=== PATIENT | female | born 1965 | race Caucasian/White ===

== ENCOUNTER → 2016-04-14 | Outpatient (CLI) | payer OTHER ==
--- NOTE | 2016-04-14 12:44 | XR ---
EXAMINATION TYPE: XR lumbar spine 2 or 3V DATE OF EXAM: 04/14/2016 12:40 PM CLINICAL HISTORY: pain TECHNIQUE: Three views of the lumbar spine are submitted. COMPARISON: None. FINDINGS: There are 5 lumbar type vertebral bodies identified. The lumbar spine shows satisfactory alignment w ithout evidence of acute fracture or dislocation. Vertebral body heights are within normal limits. Severe degenerative change at L5-S1. Mild scattered spondylosis. Moderate lumbar facet joint arthropa thy. Suspect bilateral foraminal encroachment at L5-S1. The overlying soft tissue appears unremarkab le. IMPRESSION: No acute fracture or dislocation is seen in the lumbar spine. Degenerative changes as discussed. ICD 10 NO FRACTURE, INITIAL EVALUATION
== END | disposition home or self-care (01) ==
LOC: RADXRMAIN 12:24
PROVIDERS: ATTEND Physician Assistant
DX: M47.816 Spondylosis without myelopathy or radiculopathy, lumbar region (principal)
CPT/HCPCS: 72100

== ENCOUNTER → 2016-04-27 | Outpatient (CLI) | payer OTHER ==
--- NOTE | 2016-04-27 09:37 | MR ---
EXAMINATION TYPE: MR lumbar spine wo con DATE OF EXAM: 04/27/2016 9:16 AM COMPARISON: Plain film April 2016 HISTORY: Intervertebral disc degeneration lsp, pain x 2 years. TECHNIQUE: Multiplanar, multisequence images of the lumbar spine were acquired. L1-L2: Posterior broad-based disc bulge causes mild anterior mass effect on the thecal sac. No signif icant central stenosis. There is mild facet arthropathy. L2-L3: Broad-based posterior disc bulge causes anterior mass effect on the thecal sac, only mild cent ral stenosis. No significant foraminal encroachment. Mild facet arthropathy is noted. L3-L4: Broad-based posterior disc bulge causes anterior mass effect on the thecal sac, there is mild central stenosis, facet arthropathy with hypertrophy of the ligamentum flavum causes posterior latera l mass effect on the thecal sac, encroachment on the lateral recesses. L4-L5: Circumferential posterior disc bulge causes minimal anterior mass effect on the thecal sac. Th ere is facet arthropathy with hypertrophy of the ligamentum flavum causing posterior lateral mass eff ect on the thecal sac. No significant encroachment on the lateral recesses, no significant central st enosis L5-S1: Facet arthropathy changes present. Circumferential extension of endplate disc complex results in foraminal encroachment bilaterally, mild anterior mass effect on the left S1 nerve root is present due to small left posterior paracentral disc herniation. Lumbar segments are intact. No paraspinal masses are identified. Conus medullaris has a normal appe arance. Lumbar vertebral bodies show preserved height and alignment. Minimal retrolisthesis grade 1 L 5-S1. Endplate discogenic marrow signal changes, multilevel spondylosis is present. Loss of disc heig ht and signal of the intervertebral levels. IMPRESSION: Degenerative disc disease, facet arthropathy, foraminal encroachment as described.
== END | disposition home or self-care (01) ==
LOC: RADMRIMAIN 08:37
PROVIDERS: ATTEND Family Medicine
DX: M51.36 Other intervertebral disc degeneration, lumbar region (principal); M46.96 Unspecified inflammatory spondylopathy, lumbar region
CPT/HCPCS: 72148

== ENCOUNTER → 2016-05-09 | Outpatient (CLI) | payer OTHER ==
[2016-05-09 12:50] LABS: Blood Urea Nitrogen 17 mg/dL (7-17); Non-African American GFR(MDRD) >60 (>60 ml/min/1.73 sqM)
== END | disposition home or self-care (01) ==
LOC: LABWHC1 11:46
PROVIDERS: ATTEND Nurse Practitioner
DX: M51.36 Other intervertebral disc degeneration, lumbar region (principal); M54.16 Radiculopathy, lumbar region; Z96.642 Presence of left artificial hip joint
CPT/HCPCS: 36415; 82565; 84520

== ENCOUNTER → 2016-05-16 | Outpatient (CLI) | payer OTHER ==
--- NOTE | 2016-05-16 08:47 | CT ---
EXAMINATION TYPE: CT hip LT wo con DATE OF EXAM: 05/16/2016 7:22 AM COMPARISON: CT abdomen and pelvis February 28, 2015. HISTORY: Artificial hip joint. S/P Left IRON in 2013. Left groin pain. CT DLP: 428.50 mGycm Automated exposure control for dose reduction was used. FINDINGS: Metallic hardware from left hip arthroplasty is redemonstrated causing adjacent streak artifact limit ing evaluation at this level in the pelvis. Position of hardware is not significantly changed from pr ior CT. There is stable well-defined lucent lesion along the acetabular fixating screw anteriorly, fa vor subchondral cyst . No new lucent areas are identified and acetabular or femoral shaft component t o suggest loosening or infection. No periprosthetic fracture is evident. Muscle bulk in the left thig h is maintained. No suspicious fat or bowel containing groin hernia is seen. Some diverticula are seen in visualized portion of the sigmoid colon. There is perhaps trace free flu id in pelvis similar to the prior. No suspicious pelvic adenopathy is seen. A few scattered pelvic ph leboliths are noted. There is disc space narrowing with endplate sclerosis at lumbosacral junction. IMPRESSION: NO SIGNIFICANT FINDING IDENTIFIED ON CT TO ACCOUNT FOR PATIENT'S SYMPTOMS.
--- NOTE | 2016-05-16 11:44 | NM ---
EXAMINATION TYPE: NM bone 3 phase DATE OF EXAM: 05/16/2016 11:14 AM COMPARISON: NONE HISTORY: Chronic left hip pain Triple phase bone scintigraphy was performed following the injection of26.8 mCi Tc 99m MDP. Immediat e images and 3.5 hours post injection images acquired. FINDINGS: No evidence for abnormal accumulation of radiotracer about either hip or pelvis. IMPRESSION: No scintigraphic abnormality appreciated at this time.
== END | disposition home or self-care (01) ==
LOC: RADCTMAIN 06:55
PROVIDERS: ATTEND Orthopaedic Surgery
DX: R10.30 Lower abdominal pain, unspecified (principal); M54.16 Radiculopathy, lumbar region; M54.5 Low back pain; M51.36 Other intervertebral disc degeneration, lumbar region; Z96.642 Presence of left artificial hip joint
CPT/HCPCS: 73700; 78315; A9503

== ENCOUNTER → 2016-07-19 | Outpatient (CLI) | payer OTHER ==
[2016-07-19 14:12] VITALS: BP 147/76; PULSE 62; RESP 18; TEMP 97.6
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
== END | disposition home or self-care (01) ==
LOC: PNWHC3 12:36
PROVIDERS: ATTEND Specialist
DX: M48.06 Spinal stenosis, lumbar region (principal); M51.36 Other intervertebral disc degeneration, lumbar region; M47.816 Spondylosis without myelopathy or radiculopathy, lumbar region; M46.96 Unspecified inflammatory spondylopathy, lumbar region; G89.29 Other chronic pain; I10 Essential (primary) hypertension; M19.90 Unspecified osteoarthritis, unspecified site; Z79.899 Other long term (current) drug therapy
CPT/HCPCS: 99211

== ENCOUNTER 2016-08-17 06:20 | Day surgery (SDC) | payer OTHER ==
[2016-08-15 08:57] VITALS: BMI 34.0
[~2016-08-17 06:20] MED LIST: LACTATED RINGERS 1,000 ML IV SCH
[2016-08-17] MEDS ORDERED: LIDOCAINE 1% 20 ML VIAL (10MG/ML) FOR IV START INTRADERMA ONE (06:58)
[2016-08-17 07:01] VITALS: RESP 16; TEMP 98
[2016-08-17] MEDS ORDERED: MIDAZOLAM 2 MG/2 ML VIAL ONE (07:08)
[2016-08-17] MEDS ORDERED: IOHEXOL 180 MG/ML 1 ML ML ONE (07:08)
[2016-08-17] MEDS ORDERED: BUPIVACAINE (PF) 0.5% 30 ML VIAL ONE (07:08)
[2016-08-17] MEDS ORDERED: TRIAMCINOLONE ACETONIDE 40 MG/ML 1 ML VIAL ONE (07:08)
[2016-08-17] MEDS ORDERED: fentaNYL (PF) 50 MCG/ML 2 ML AMP ONE (07:08)
[2016-08-17] MEDS ORDERED: IV FLUID CONTINUATION 1,000 ML IV ONE (07:35)
[2016-08-17 07:52] VITALS: BP 139/77; PULSE 60
--- NOTE | 2016-08-17 08:58 | FL ---
EXAMINATION TYPE: FL guided pain mgmt statistic DATE OF EXAM: 08/17/2016 7:39 AM HISTORY: Flouroscopy time 6 seconds of fluoroscopy provided. IMPRESSION: 1. Fluoroscopy time.
--- NOTE | 2016-08-17 12:03 | P.PCN ---
Date of Procedure: 08/17/16 Procedure(s) Performed: PREOPERATIVE DIAGNOSIS: 1- Lumbar Degenerative Disc Diseases 2-Lumbar spondylosis with Facet arthropathy without myelopathy 3-left trochanteric bursitis POSTOPERATIVE DIAGNOSIS: 1-Lumber Degenerative Disc Diseases 2-Lumbar spondylosis with Facet arthropathy without myelopathy. 3-to contradict bursitis PROCEDURE 1. Lumbar epidural steroid injection under fluoroscopic guidance at the L5-S1 level. 2. Lumbar epidurogram. 3-left trochanteric bursa steroid injection under fluoroscopy guidance ANESTHESIA: Local with 1% lidocaine 3 ml and IV sedation with Versed 2 mg , and fentanyle 100 Mcg EBL: Minimal PROCEDURE INDICATION: The patient with low back pain and radiculitis symptoms unresponsive to conservative treatment. Fluoroscopy was used to optimize visualization of the needle placement and to maximize safety. PROCEDURE DESCRIPTION / TECHNIQUE: The patient was seen and identified in the preoperative area. Risks, benefits , complications including but not limited to infections ,bleeding ,allergic reaction to the medications ,nerve damage and not complete pain releife , and alternatives were discussed with the patient. The patient agreed to proceed with the procedure and signed the consent. IV was started, and vital signs were stable. Patient was taken to the OR and time out was completed. The patient was placed in the prone position on procedure table and a pillow was placed under the abdomen to reduce lumbar lordosis. The lumbosacral area was prepped and draped in the usual sterile fashion.ere closely monitored during the procedure. Conscious sedation was used during the procedure to decrease patients anxiety. Vital signs was monitered during the entire procedure. Using anterior-posterior fluoroscopy, the L5-S1 interlaminar space was identified and the skin over this site was marked and then infiltrated with 1% lidocaine subcutaneously. Subsequently, a 20-gauge Tuohy epidural needle was inserted and advanced toward the epidural space using the ``Loss of resistance technique and guided by AP and lateral fluoroscopy. The correct needle position in the epidural space was verified with the injection of 2 mL of the water soluble contrast dye Omnipaque 180 contrast and observing an excellent epidurogram with the epidural spread of the dye, after negative aspiration for blood and CSF and in the absence of paresthesias. Again after negative aspiration, a 6 ml mixture containing 60 mg of Kenalog and 2 ml of preservative free Normal Saline, and 2 ml of preservative free lidocaine 1% solution was injected and a washout of epidurogram was seen. Needle was withdrawn intact, skin was cleansed, and bandages were applied. The left trochanteric bursa prepped with chlorhexidine 3, using 22-gauge Quincke-type spinal needle advanced slowly under fluoroscopy and placed in the left trochanteric bursa area, then after negative aspiration for heme and there was no paresthesia during the injection total of 5 ML of Marcaine 0.5%, explained 20 mg of Kenalog injected after negative aspiration, patient tolerated the procedure well COMPLICATIONS: None DISPOSITION / PLANS: The patient was placed in a supine position and transferred to the recovery area in a stable condition for observation. There was no evidence of lower extremity motor or sensory deficit after the procedure. Patient was discharged from the recovery room after meeting discharge criteria. Home discharge instructions were given to the patient by the staff. The patient was reexamined prior to discharge. The patient will schedule a follow up in the clinic in 2-4 weeks.
== END 2016-08-17 08:15 | disposition home or self-care (01) ==
LOC: ORPAIN 06:20
PROVIDERS: ATTEND Specialist
DX: G89.29 Other chronic pain (principal); M51.16 Intervertebral disc disorders with radiculopathy, lumbar region; M48.06 Spinal stenosis, lumbar region; M47.26 Other spondylosis with radiculopathy, lumbar region; M46.96 Unspecified inflammatory spondylopathy, lumbar region; M70.62 Trochanteric bursitis, left hip; M46.1 Sacroiliitis, not elsewhere classified; I10 Essential (primary) hypertension; M19.90 Unspecified osteoarthritis, unspecified site; Z79.899 Other long term (current) drug therapy; Z87.891 Personal history of nicotine dependence; Z96.642 Presence of left artificial hip joint
CPT/HCPCS: 62323; 20610; 99152; J2250; J3301; Q9965; J3010

== ENCOUNTER 2016-09-08 06:22 | Day surgery (SDC) | payer OTHER ==
[2016-09-06 10:43] VITALS: BMI 33.6
[2016-09-08 07:00] VITALS: TEMP 97.8
[2016-09-08] MEDS ORDERED: LACTATED RINGERS 1,000 ML IV ONE (07:00)
[2016-09-08] MEDS ORDERED: LIDOCAINE 1% 20 ML VIAL (10MG/ML) FOR IV START INTRADERMA ONE (07:01)
[2016-09-08] MEDS ORDERED: fentaNYL (PF) 50 MCG/ML 2 ML AMP ONE (07:23)
[2016-09-08] MEDS ORDERED: MIDAZOLAM 2 MG/2 ML VIAL ONE (07:23)
[2016-09-08] MEDS ORDERED: BUPIVACAINE (PF) 0.5% 30 ML VIAL ONE (07:23)
[2016-09-08] MEDS ORDERED: IOHEXOL 180 MG/ML 1 ML ML ONE (07:23)
[2016-09-08] MEDS ORDERED: TRIAMCINOLONE ACETONIDE 40 MG/ML 1 ML VIAL ONE (07:23)
[2016-09-08] MEDS ORDERED: DEXAMETHASONE SOD PHOSPHATE 10 MG/ML 1 ML VIAL ONE (07:23)
[2016-09-08] MEDS ORDERED: LACTATED RINGERS 1,000 ML IV SCH (07:30)
[2016-09-08] MEDS ORDERED: IV FLUID CONTINUATION 1,000 ML IV ONE (07:40)
[2016-09-08 07:50] VITALS: RESP 18
--- NOTE | 2016-09-08 07:59 | P.PCN ---
Date of Procedure: 09/08/16 Preoperative Diagnosis: Postoperative Diagnosis: Procedure(s) Performed: Implants: Surgeon: Aguila Recinos Pathology: none sent Condition: stable Disposition: PACU Indications for Procedure: Operative Findings: Description of Procedure: PREOPERATIVE DIAGNOSIS: 1-Lumbar radiculitis. 2-left trochanteric bursitis POSTOPERATIVE DIAGNOSIS: same PROCEDURE 1. Lumbar epidural steroid injection under fluoroscopic guidance at the L5-S1 level. 2. Lumbar epidurogram. 3. Left greater trochanteric bursa with fluoroscopy ANESTHESIA: Local with 1% lidocaine; IV sedation with Versed/fentanyl. EBL: Minimal PROCEDURE INDICATION: The patient with low back pain and radiculitis symptoms and left trochanteric bursitis unresponsive to conservative treatment. Fluoroscopy was used to optimize visualization of the needle placement and to maximize safety. No use of blood thinners. PROCEDURE DESCRIPTION / TECHNIQUE: The patient was seen and identified in the preoperative area. Risks, benefits, complications, and alternatives were discussed with the patient, including but not limited to bleeding, infection, nerve damage, allergic reactions to medications, and incomplete pain relief. The patient agreed to proceed with the procedure and signed the consent after all questions were answered. IV was started, and vital signs were stable. Patient was taken to the OR and time out was completed to confirm patient position, procedure, laterality of pain, and allergies. The patient was placed in the prone position on procedure table and a pillow was placed under the abdomen to reduce lumbar lordosis. The lumbosacral area was prepped and draped in the usual sterile fashion. Critical pause was taken. Vital signs were closely monitored during the procedure. Conscious sedation was used during the procedure to decrease patients anxiety. Using anterior-posterior fluoroscopy, the L5-S1 interlaminar space was identified and the skin over this site was marked and then infiltrated with 1% lidocaine subcutaneously. Subsequently, a 20-gauge Tuohy epidural needle was inserted and advanced toward the epidural space using the Loss of resistance technique and guided by AP and lateral fluoroscopy. The correct needle position in the epidural space was verified with the injection of 2 mL of the water soluble contrast dye Omnipaque 300 contrast and observing an excellent epidurogram with the epidural spread of the dye, after negative aspiration for blood and CSF and in the absence of paresthesias. Again after negative aspiration, a 8 ml mixture containing 20 mg of PF Decadron and 5 ml of preservative free Normal Saline, and 2 ml of preservative free lidocaine 1% solution was injected and a washout of epidurogram was seen. Needle was withdrawn intact. After this, the left hip areas was prepped and draped in the usual sterile fashion and the left greater trochanter was identified under fluoroscopy. Block solution was prepared with 40 mg of Kenalog in 7 mL of 0.5% bupivacaine preservative-free. After localization with 1% lidocaine, a 22-gauge 3.5 inch needle was advanced toward the subtrochanteric space, and after negative aspiration, all of the block solution was injected. This was repeated on the Right??/Left?? side. Needle was withdrawn intact, skin was cleansed, and bandages were applied. COMPLICATIONS: None COMMENTS: DISPOSITION / PLANS: The patient was placed in a supine position and transferred to the recovery area in a stable condition for observation. There was no evidence of lower extremity motor or sensory deficit after the procedure. Patient was discharged from the recovery room after meeting discharge criteria. Home discharge instructions were given to the patient by the staff. The patient was reexamined prior to discharge and there were no issues. The patient will schedule a third procedure in 2-4 weeks.
--- NOTE | 2016-09-08 08:05 | FL ---
EXAMINATION TYPE: FL guided pain mgmt statistic DATE OF EXAM: 09/08/2016 HISTORY: Pain lumbar epi inj/lt trochanter inj. dr solano. 8 sec fl time. 3 pics scanned
[2016-09-08 08:07] VITALS: BP 165/75; PULSE 53
== END 2016-09-08 08:15 | disposition home or self-care (01) ==
LOC: ORPAIN 06:22
PROVIDERS: ATTEND Anesthesiology
DX: G89.29 Other chronic pain (principal); M54.16 Radiculopathy, lumbar region; E78.5 Hyperlipidemia, unspecified; I10 Essential (primary) hypertension; Z79.899 Other long term (current) drug therapy; M70.62 Trochanteric bursitis, left hip
CPT/HCPCS: 62323; 20610; 99152; J2250; J1100; J3301; Q9965; J3010

== ENCOUNTER 2016-09-29 12:11 | Day surgery (SDC) | payer OTHER ==
[2016-09-28 08:20] VITALS: BMI 33.0
[2016-09-29 12:55] VITALS: RESP 16; TEMP 98.5
[2016-09-29] MEDS ORDERED: LIDOCAINE 1% 20 ML VIAL (10MG/ML) FOR IV START SQ ONE (13:03)
[2016-09-29] MEDS ORDERED: BUPIVACAINE (PF) 0.75% 30 ML VIAL ONE (13:57)
[2016-09-29] MEDS ORDERED: MIDAZOLAM 2 MG/2 ML VIAL ONE (13:57)
[2016-09-29] MEDS ORDERED: IOHEXOL 180 MG/ML 1 ML ML ONE (13:57)
[2016-09-29] MEDS ORDERED: DEXAMETHASONE SOD PHOS (MDV) 100 MG/10 ML VIAL ONE (13:57)
[2016-09-29] MEDS ORDERED: fentaNYL (PF) 50 MCG/ML 2 ML AMP ONE (13:57)
--- NOTE | 2016-09-29 14:19 | P.PCN ---
Date of Procedure: 09/29/16 Preoperative Diagnosis: Postoperative Diagnosis: Procedure(s) Performed: PREOPERATIVE DIAGNOSIS: 1- Lumbar Degenerative Disc Diseases 2-Lumbar spondylosis with Facet arthropathy without myelopathy. 3-lumbar radiculopathy. 4-left trochanteric bursitis. POSTOPERATIVE DIAGNOSIS: Same as preop diagnosis. PROCEDURE 1. Lumbar epidural steroid injection under fluoroscopic guidance at the L5-S1 level. 2. Lumbar epidurogram. 3-left trochanteric bursa steroid injections under fluoroscopy guidance ANESTHESIA: Local with 1% lidocaine 3 ml and IV sedation with Versed 2 mg , and fentanyle 50 Mcg EBL: Minimal PROCEDURE INDICATION: The patient with low back pain and radiculitis symptoms unresponsive to conservative treatment. Fluoroscopy was used to optimize visualization of the needle placement and to maximize safety. PROCEDURE DESCRIPTION / TECHNIQUE: The patient was seen and identified in the preoperative area. Risks, benefits , complications including but not limited to infections ,bleeding ,allergic reaction to the medications ,nerve damage and not complete pain releife , and alternatives were discussed with the patient. The patient agreed to proceed with the procedure and signed the consent. IV was started, and vital signs were stable. Patient was taken to the OR and time out was completed. The patient was placed in the prone position on procedure table and a pillow was placed under the abdomen to reduce lumbar lordosis. The lumbosacral area was prepped and draped in the usual sterile fashion.ere closely monitored during the procedure. Conscious sedation was used during the procedure to decrease patients anxiety. Vital signs was monitered during the entire procedure. Using anterior-posterior fluoroscopy, the L5-S1 interlaminar space was identified and the skin over this site was marked and then infiltrated with 1% lidocaine subcutaneously. Subsequently, a 20-gauge Tuohy epidural needle was inserted and advanced toward the epidural space using the ``Loss of resistance technique and guided by AP and lateral fluoroscopy. The correct needle position in the epidural space was verified with the injection of 2 mL of the water soluble contrast dye Omnipaque 180 contrast and observing an excellent epidurogram with the epidural spread of the dye, after negative aspiration for blood and CSF and in the absence of paresthesias. Again after negative aspiration, a 6 ml mixture containing 15 mg of Dexamethasone and 2 ml of preservative free Normal Saline, and 2 ml of preservative free lidocaine 1% solution was injected and a washout of epidurogram was seen. Needle was withdrawn intact, In the left hip area prepped with chlorhexidine 3, then local infiltration of the skin and subcutaneous tissue with lidocaine 1% 2 mL, then 22-gauge spinal needle Advanced slowly under fluoroscopy and placed in the left trochanteric bursa area , needle placement confirmed under fluoroscopy then after negative aspiration Marcaine 0.75% 5 ML mixed with 5 mg of dexamethasone injected in the left trochanteric bursa after negative aspiration, she tolerated the procedure well without any complications COMPLICATIONS: None DISPOSITION / PLANS: The patient was placed in a supine position and transferred to the recovery area in a stable condition for observation. There was no evidence of lower extremity motor or sensory deficit after the procedure. Patient was discharged from the recovery room after meeting discharge criteria. Home discharge instructions were given to the patient by the staff. The patient was reexamined prior to discharge. The patient will schedule a follow up in the clinic in 2-4 weeks. Implants: Indications for Procedure: Operative Findings: Description of Procedure:
[2016-09-29] MEDS ORDERED: IV FLUID CONTINUATION 1,000 ML IV ONE (14:21)
--- NOTE | 2016-09-29 14:29 | FL ---
FLUOROSCOPY 4 seconds of fluoroscopy time were utilized during lumbar epidural injection. 2 images document the p rocedure.
[2016-09-29 14:42] VITALS: BP 139/79; PULSE 58
== END 2016-09-29 15:05 | disposition home or self-care (01) ==
LOC: ORPAIN 12:11
PROVIDERS: ATTEND Specialist
DX: M51.16 Intervertebral disc disorders with radiculopathy, lumbar region (principal); M47.816 Spondylosis without myelopathy or radiculopathy, lumbar region; M46.96 Unspecified inflammatory spondylopathy, lumbar region; M70.62 Trochanteric bursitis, left hip; I10 Essential (primary) hypertension
CPT/HCPCS: 99152; 62323; 20610; J2250; Q9965; J3010; J1100

== ENCOUNTER 2016-10-15 13:03 | Emergency (ER) | payer OTHER ==
[2016-10-15 13:07] VITALS: BP 156/73; PULSE 85; RESP 18; TEMP 97.7
[2016-10-15] MEDS ORDERED: HYDROmorphone 1 MG/ML 1 ML SYRINGE IM STA (13:27)
[2016-10-15] MEDS ORDERED: ONDANSETRON ODT 4 MG TAB PO STA (13:27)
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
--- NOTE | 2016-10-15 14:07 | XR ---
EXAMINATION TYPE: XR cervical spine limited DATE OF EXAM: 10/15/2016 COMPARISON: NONE HISTORY: 51-year-old female posterior right neck pain with right-sided radiculopathy TECHNIQUE: 4 views FINDINGS: The predental space widening or prevertebral soft tissue swelling. Uncovertebral joint and facet degenerative change mid to lower cervical spine. Normal odontoid view. Reversal of the normal cervical lordosis. There may be a slight grade 1 retrolisthesis at C5-C6. Cunningham kim, posterior disc osteophyte complex is present here and at C4-C5. There is associated moderate to advanced disc/endplate degenerative change at C5-C6. Otherwise, alignment is maintained. IMPRESSION: 1. Moderate to advanced disc/endplate degenerative change at C5-C6 with grade 1 retrolisthesis here. 2. Posterior disc osteophyte complexes at both C5-C6 and C4-C5. 3. Reversal of the normal cervical lordosis. 4. Additional scattered facet and uncovertebral joint arthropathy mid to lower cervical spine.
== END 2016-10-15 14:36 | disposition home or self-care (01) ==
LOC: EC 13:03
DX: M54.2 Cervicalgia (principal); M50.322 Other cervical disc degeneration at C5-C6 level; M25.519 Pain in unspecified shoulder; I10 Essential (primary) hypertension; Z87.891 Personal history of nicotine dependence; Z79.899 Other long term (current) drug therapy
CPT/HCPCS: 72040; 99283; 96372; J1170

== ENCOUNTER → 2016-10-31 | Outpatient (CLI) | payer OTHER | END | disposition home or self-care (01) | LOC: RADMRIMAIN 14:21 | PROVIDERS: ATTEND Family Medicine | DX: Z53.9 Procedure and treatment not carried out, unspecified reason (principal) ==

== ENCOUNTER → 2016-11-28 | Outpatient (CLI) | payer OTHER ==
[2016-11-28 14:14] VITALS: BP 166/67; PULSE 96; RESP 16; TEMP 97.9
--- NOTE | 2016-11-28 14:34 | P.PN ---
Progress Note - Text This is a 51-year-old female with history of lower back pain that responded favorably to lumbar epidural steroid injections. The patient is in today because of her recent neck pain that started with no precipitating events in October 2016. The pain is constant and the patient feels some weakness in her right hand as she states he also feels some difficulty her right hand especially with bringing the right hand up to her mouth when she eats. The pain starts in the neck area and goes to the right elbow with numbness and tingling down to the right hand. She denies any bowel or bladder dysfunction. The pain wakes the patient up at night. Weight loss. The pain has improved since the patient's visit to the ER and treatment with oral steroids. She just had an MRI done on the cervical spine however we don't have access to the results. The plain x-ray of the cervical spine showed degenerative changes and spondylolisthesis of C5 and C6 also bone spurs and facet arthropathy at multiple levels. Neuro exam of the upper extremities showed normal muscle strength bilaterally and symmetrically, absent right biceps reflex. He has no tenderness in the cervical paravertebral area bilaterally. He has normal range of motion of the cervical spine. Compression test of the cervical spine did not elicit any radicular pain. It seems that the patient has cervical radiculopathy on the right side and if her pain does not get better then she might benefit from getting cervical epidural steroid injection under fluoroscopic guidance. The patient also may benefit from getting physical therapy. His been taking Motrin and Flexeril for her pain and she is to continue using these medications.
== END | disposition home or self-care (01) ==
LOC: PNWHC3 13:50
PROVIDERS: ATTEND Anesthesiology
DX: M43.10 Spondylolisthesis, site unspecified (principal); M47.812 Spondylosis without myelopathy or radiculopathy, cervical region; M46.82 Other specified inflammatory spondylopathies, cervical region
CPT/HCPCS: 99211

== ENCOUNTER 2017-01-04 08:26 | Day surgery (SDC) | payer OTHER ==
[2017-01-03 10:03] VITALS: BMI 34.9
[2017-01-04 08:43] VITALS: RESP 16; TEMP 97.1
[2017-01-04] MEDS ORDERED: LACTATED RINGERS 1,000 ML IV ONE ×2 (08:43→09:35)
[2017-01-04] MEDS ORDERED: LIDOCAINE 1% 20 ML VIAL (10MG/ML) FOR IV START INTRADERMA ONE (08:44)
--- NOTE | 2017-01-04 09:28 | P.PCN ---
Date of Procedure: 01/04/17 Surgeon: Aguila Recinos Pathology: none sent Condition: stable Disposition: PACU Description of Procedure: PREOPERATIVE DIAGNOSIS: Cervical radiculopathy. POSTOPERATIVE DIAGNOSIS: Cervical radiculopathy. PROCEDURE 1. Cervical epidural steroid injection under fluoroscopic guidance, C7-T1 level. 2. Cervical epidurogram. ANESTHESIA: Local anesthesia with 1% lidocaine and IV sedation with versed/ fentanyl. EBL: Minimal PROCEDURE INDICATION: The patient with neck pain and radiculitis unresponsive to conservative treatment consents for procedure. DIRK #1 today; no use of blood thinners. PROCEDURE DESCRIPTION / TECHNIQUE: The patient was seen and identified in the preoperative area. Risks, benefits, complications, and alternatives were discussed with the patient (including but not limited to incomplete pain relief, bleeding, infection, nerve damage, and allergies to medications), the patient agreed to proceed with the procedure and signed the consent after all questions were answered. Patient was taken to the OR and time out was completed to verify proper patient , position, laterality of pain, and allergies. Pt was placed in the prone position. A pillow was placed under the patients chest to increase the cervical interlaminar space. The cervical area was prepped and draped in the usual sterile fashion. Critical pause was taken. Vital signs were closely monitored during the procedure. Conscious sedation was used during the procedure to decrease patients anxiety. Using anterior-posterior fluoroscopy, the C7-T1 interlaminar space was identified and the skin over this site was marked and then infiltrated with 1% lidocaine subcutaneously in a paramedian fashion. Subsequently, a 20-gauge 3-1/2 -inch Tuohy epidural needle was inserted and advanced toward the epidural space by means of the loss of resistance technique and guided by AP and lateral fluoroscopy. After negative aspiration for blood or CSF and in the absence of paresthesias, the correct needle position in the epidural space was verified with the injection of 1 mL of the water soluble contrast dye Omnipaque-180 and observing an excellent epidurogram with the epidural spread of the dye, after negative aspiration for blood and CSF and in the absence of paresthesias. Again after negative aspiration, a 4 ml mixture containing 20 mg of Decadron and 2 ml of preservative free Normal Saline solution was injected and a washout of epidurogram was seen. Needle was withdrawn intact, skin was cleansed, and bandages were applied. COMPLICATIONS: None COMMENTS: DISPOSITION / PLANS: The patient was placed in a supine position and transferred to the recovery area in a stable condition for observation. There was no evidence of upper extremity motor or sensory deficit after the procedure. Patient was discharged from the recovery room after meeting discharge criteria. Home discharge instructions were given to the patient by the staff. The patient was reexamined prior to discharge and there were no issues. The patient will schedule a repeat DIRK in 4-6 weeks.
--- NOTE | 2017-01-04 09:52 | FL ---
EXAMINATION TYPE: FL guided pain mgmt statistic DATE OF EXAM: 01/04/2017 CLINICAL HISTORY: Neck pain. TECHNIQUE: Fluoroscopy. COMPARISON: None. FINDINGS: Fluoroscopic guidance was provided during pain relief procedure performed by Dr. Recinos . A total of 23 seconds of fluoroscopic time was utilized during the procedure and 3 spot images are ac quired. Images acquired shows needle localization in the lower cervical spine. IMPRESSION: As Above.
[2017-01-04 09:55] VITALS: BP 119/71; PULSE 57
== END 2017-01-04 10:12 | disposition home or self-care (01) ==
LOC: ORPAIN 08:26
PROVIDERS: ATTEND Anesthesiology
DX: M54.12 Radiculopathy, cervical region (principal); Z79.1 Long term (current) use of non-steroidal anti-inflammatories (NSAID); Z79.899 Other long term (current) drug therapy; I10 Essential (primary) hypertension; E78.5 Hyperlipidemia, unspecified
CPT/HCPCS: 99152; 62321; J2250; J1100; Q9965; J3010

== ENCOUNTER → 2017-01-23 | Outpatient (CLI) | payer OTHER ==
--- NOTE | 2017-01-24 08:03 | MM ---
Reason for exam: screening (asymptomatic). Last mammogram was performed 1 year ago. History: Patient is postmenopausal. Took hormonal contraceptives for 3 years beginning at age 17. Physical Findings: A clinical breast exam by your physician is recommended on an annual basis and results should be correlated with mammographic findings. MG Screening Mammo w CAD Bilateral CC and MLO view(s) were taken. Prior study comparison: January 22, 2016, bilateral MG screening mammo w CAD. January 20, 2015, bilateral MG screening mammo w CAD. There are scattered fibroglandular densities. No significant changes when compared with prior studies. ASSESSMENT: Negative, BI-RAD 1 RECOMMENDATION: Routine screening mammogram of both breasts in 1 year.
== END ==
LOC: RADMAMWWP 06:56
PROVIDERS: ATTEND Family Medicine
DX: Z12.31 Encounter for screening mammogram for malignant neoplasm of breast (principal)

== ENCOUNTER 2017-02-08 06:23 | Inpatient (IN) | payer OTHER ==
[2017-01-26 15:38] VITALS: BMI 34.9
[~2017-02-08 06:23] MED LIST changes: +BACITRACIN 50,000 UNIT, POLYMYXIN B 500,000 UNIT in SODIUM CHLORIDE 0.9% IRRIGATIO 1,00... IRRIGATION ONE; -LACTATED RINGERS 1,000 ML IV SCH; +LIDOCAINE 1% 20 ML VIAL (10MG/ML) FOR IV START INTRADERMA PRN; +ONDANSETRON 4 MG/2 ML VIAL IVP ONE; +SCOPOLAMINE 1.5MG/72HR PATCH TRANSDERM ONE; +ceFAZolin 2 GM in SODIUM CHLORIDE 0.9% 100 ML IVPB ONE
[2017-02-08] MEDS: LACTATED RINGERS 1,000 ML IV SCH (07:06)
[2017-02-08] MEDS ORDERED: NEOSTIGMINE 1 MG/ML 10 ML VIAL ONE (07:57)
[2017-02-08] MEDS ORDERED: LIDOCAINE 1% INJ 10MG/ML (20 ML MDV) SQ ONE (07:57)
[2017-02-08] MEDS ORDERED: THROMBIN (BOVINE) 5,000 UNIT VIAL TOPICAL ONE (07:57)
[2017-02-08] MEDS ORDERED: MIDAZOLAM 2 MG/2 ML VIAL ONE (07:57)
[2017-02-08] MEDS ORDERED: DEXAMETHASONE SOD PHOS (MDV) 100 MG/10 ML VIAL ONE (07:57)
[2017-02-08] MEDS ORDERED: HYDROmorphone (PF) 1 MG/ML ONE (07:57)
[2017-02-08] MEDS ORDERED: GELATIN SPONGE,ABSORB (LARGE) 1 EACH SPONGE TOPICAL ONE (07:57)
[2017-02-08] MEDS ORDERED: PHENYLEPHRINE-0.9% NACL SYG 1 MG/10 ML SYRINGE ONE (07:57)
[2017-02-08] MEDS ORDERED: GLYCOPYRROLATE 0.2 MG/ML 2 ML VIAL ONE (07:57)
[2017-02-08] MEDS ORDERED: ROCURONIUM BROMIDE 10 MG/ML 10 ML VIAL IV ONE (07:57)
[2017-02-08] MEDS ORDERED: LIDOCAINE 1% INJ 10MG/ML (20 ML MDV) ONE (07:57)
[2017-02-08] MEDS ORDERED: PROPOFOL 10 MG/ML 20 ML VIAL IV ONE (07:57)
[2017-02-08] MEDS ORDERED: fentaNYL (PF) 50 MCG/ML 2 ML AMP ONE (07:57)
[2017-02-08] MEDS ORDERED: SUCCINYLCHOLINE CHLORIDE 100 MG/5 ML SYR IV ONE (07:57)
--- NOTE | 2017-02-08 09:04 | XR ---
EXAMINATION TYPE: XR cervical spine 1V DATE OF EXAM: 02/08/2017 COMPARISON: 10/15/2016 HISTORY: Needle placement TECHNIQUE: Single crosstable lateral view of the cervical spine was obtained. FINDINGS: Single intraoperative crosstable lateral image of the cervical spine is demonstrates needle placement at the C4-C5 intervertebral disc space. Multilevel degenerative disc disease is redemonstr ated. Alignment is appropriate. Prevertebral soft tissues are poorly visualized. IMPRESSION: Needle placement at the C4-C5 intervertebral disc space.
[2017-02-08] MEDS ORDERED: LACTATED RINGERS 1,000 ML IV ONE (10:03)
[2017-02-08] MEDS ORDERED: HYDROmorphone 0.5 MG/0.5 ML SYRINGE IVP PRN (10:21)
[2017-02-08] MEDS ORDERED: BENZOCAINE/MENTHOL LOZENG 1 EACH LOZENGE MUCOUS MEM PRN (10:21)
[2017-02-08] MEDS ORDERED: HYDROcodone/APAP 5-325MG 1 EACH TAB PO PRN (10:21)
[2017-02-08] MEDS ORDERED: HYDROmorphone 1 MG/ML 1 ML SYRINGE IVP PRN (10:21)
[2017-02-08] MEDS ORDERED: ONDANSETRON 4 MG/2 ML VIAL IVP PRN (10:21)
[2017-02-08] MEDS ORDERED: DOCUSATE 100 MG CAP PO PRN (10:23)
--- NOTE | 2017-02-08 10:33 | P.OP ---
Date of Procedure: 02/08/17 Preoperative Diagnosis: Severe spinal stenosis C4 5 C5 6, degenerative disc disease C4 5 C5 6, large cervical spine osteophytic spurring C4 5 C5 6, neck pain with upper extremity radiculopathy Postoperative Diagnosis: Same Anesthesia: GETA Pathology: none sent Condition: stable Disposition: PACU Description of Procedure: BRIEF OPERATIVE NOTE Preoperative Diagnosis: Severe cervical stenosis C4 5 C5 6, herniated nuclear stenosis C4 5 C5 6, neck pain with upper extremity radiculopathy, large anterior cervical osteophytic spurring, degenerative disc disease Postoperative Diagnosis: Same Procedure: Anterior cervical decompression with discectomy and fusion C4 5 C5 6 Placement of interbody graft C4 5 C5 6 Application of anterior cervical plate C4 5 6 Removal of large anterior osteophytes C4 5 C5 6 Surgeon: Dr. Kline Guide Dog Mobility Instructor: Stoney Villeda is present throughout the entire the case persistence during positioning, dissection, exposure, visualization, and all crucial elements of the case as well as closure. Anesthesia: General anesthesia Estimated blood loss: approximately 40 mL Complications: None apparent Components implanted: K2M [place] anterior cervical plate system with V Kos interbody allograft bone graft and 1 mL bone putty Disposition: To recovery room in good stable condition. OPERATIVE INDICATIONS The patient has had long-standing issues in their neck and upper extremities. she is found have severe ossific spurring severe disc degeneration and severe cervical stenosis with disc herniation at C4 5 and C5 6 which correlated well with her neck and upper extremity symptoms. The patient has been through conservative treatment. she is having progressive symptoms despite aggressive conservative treatment. We discussed various treatment options including surgery, and the patient wishes to proceed with surgery We discussed the risk, patient's alternatives and benefits of surgery including but not limited to, risk of bleeding risk of infection, risk of need for further surgery, risk of decreased, loss of motion, muscle function, malunion nonunion, hardware failure , nerve damage, paralysis, heart attack, and . OPERATIVE SUMMARY After discussing all the risks, patient alternatives and benefits at length, the patient elected to proceed with surgical intervention, signed informed consent, and presented for their procedure. The patient was seen and examined in the preoperative holding area and the surgical site was marked. The patient was given antibiotics and brought to the operating room. The patient was positioned on the operating room table in a supine position being careful to pad any bony prominences and pressure points. The patient was sedated and intubated by anesthesia in standard fashion. Once the airway and C- spine were stabilized the patient's arms were padded and tucked at her side, with her shoulders gently taped. The head was placed in a donut pad with the neck in good neutral alignment and position. We were careful to maintain the patient's cervical spine and good neutral alignment and position throughout. The patient was prepped and draped in a normal standard fashion. An appropriate timeout and keystone protocol performed. We were able to proceed with the surgery. The local wound area was infiltrated with local anesthetic. An incision was made transversely approximately 2-1/2 cm over the appropriate levels at C5 . Dissection was taken down subcutaneously to the level of the platysma which was split in line with its fibers. Dissection was taken with a carotid approach, with the trachea and esophagus medial and the carotid sheath laterally. We dissected down to the anterior surface of the vertebral bodies. Intraoperative x-ray was taken which showed a marker at the appropriate levelat C4 5 . With the appropriate level positively confirmed, we were able to proceed with discectomy at the appropriate levels. All of the operative levels were exposed appropriately. The patient had all their twitches back, and there was no evidence of recurrent laryngeal issue. The wound was copiously irrigated and suctioned dry as had been done periodically throughout the case. At the appropriate level/levels, starting at C4 5 and then moving to C5 6,I established an annulotomy with an 11 blade scalpel. A discectomy was performed with a combination of pituitary rongeurs, curettes, a high-speed bur, and Kerrison rongeurs. The posterior longitudinal ligament was taken down as were any posterior osteophytes. note was made of significant posterior osteophytic spurring and disc herniation with stenosis which was remedied with the decompression. There were large anterior osteophytes which were removed as well. I was able get good dental and bilateral foraminal decompression and This gave good central and bilateral foraminal decompression. There is no evidence of any dural tear or leak. The endplates were prepared with a high- speed bur. With the endplates in good parallel position, I was able to size for the appropriate size interbody graft. The wound was irrigated and suctioned dry the graft was prepared and malleted into position. It had good alignment and position with the anterior surface flush with the anterior surface of the vertebral bodies. This was done similarly the appropriate levels. With the grafts intact, I was able to measure and contour and appropriate sized plate. The plate was positioned at the midline over the appropriate levels at C4 5 and 6. Screw holes were established with a hand drill and drill guide. Screws were placed in good alignment and position with excellent bony purchase. They were seated under the locking device. The construct was checked and found to be stable. Intraoperative x-ray was taken which showed good alignment and position of the implants at the appropriate levels. There was no evidence of any dural tear or leak. Good hemostasis was maintained. The wound was copiously irrigated and suctioned dry as had been done periodically throughout the case. The platysma was closed with absorbable suture. The subcutaneous tissue was closed. The subcuticular tissue was closed with absorbable suture. The wound was cleaned and dried and dressed appropriately. A soft cervical collar was placed appropriately. The patient was woken up by anesthesia, extubated, transferred back gently to their hospital bed and brought to the recovery room in good stable condition. The patient will be admitted to the hospital for appropriate postoperative care , medical management and monitoring. We will continue to follow them closely about the postoperative course.
--- NOTE | 2017-02-08 10:36 | XR ---
EXAMINATION TYPE: XR cervical spine 1V DATE OF EXAM: 02/08/2017 COMPARISON: Intraoperative radiograph of the cervical spine of the same date HISTORY: Hardware placement TECHNIQUE: Single lateral radiograph of the cervical spine FINDINGS: New anterior cervical fusion device spans the C4-6 vertebral levels with intervertebral dis c spacer at C4-C5 and poor visualization below the superior aspect of C5-2 overlying soft tissues. Pa tient is intubated. Prevertebral soft tissues are poorly penetrated and difficult to accurately measu re. There is straightening of usual cervical lordosis although alignment is maintained. IMPRESSION: Postoperative changes of the cervical spine from C4 through C6.
[2017-02-08] MEDS: HYDROmorphone 0.5 MG/0.5 ML SYRINGE IVP PRN ×2 (10:53→11:06)
[2017-02-08] MEDS: HYDROcodone/APAP 7.5-325MG 1 EACH TAB PO PRN ×3 (12:28→20:31)
[2017-02-08] MEDS: SODIUM CHLORIDE 0.9% 1,000 ML IV SCH ×2 (12:28→20:42)
[2017-02-08] MEDS: DIAZEPAM 5 MG TAB PO PRN ×2 (16:35→22:33)
[2017-02-08] MEDS: ceFAZolin 2 GM in SODIUM CHLORIDE 0.9% 100 ML IVPB SCH (17:47)
[2017-02-09] MEDS: ceFAZolin 2 GM in SODIUM CHLORIDE 0.9% 100 ML IVPB SCH (00:29)
[2017-02-09] MEDS: LACTATED RINGERS 1,000 ML IV SCH (03:51)
[2017-02-09] MEDS: HYDROcodone/APAP 7.5-325MG 1 EACH TAB PO PRN ×2 (06:49→11:42)
[2017-02-09] MEDS: DIAZEPAM 5 MG TAB PO PRN (07:48)
[2017-02-09] MEDS ORDERED: SENNOSIDES-DOCUSATE SODIUM 1 EACH TAB PO SCH (09:00)
[2017-02-09] MEDS ORDERED: MULTIVITAMINS, THERA 1 EACH TAB PO SCH (09:00)
[2017-02-09] MEDS ORDERED: LISINOPRIL-HCTZ 20-12.5 MG 1 EACH TAB PO SCH (09:00)
[2017-02-09] MEDS ORDERED: ATORVASTATIN 20 MG TAB PO SCH (09:00)
[2017-02-09 09:30] VITALS: BP 129/61; PULSE 68; RESP 14; TEMP 98.3
--- NOTE | 2017-02-09 10:22 | P.DS ---
Providers Date of admission: 02/08/17 11:00 Attending physician: Hai Kline Primary care physician: Stated None Hospital Course: The patient presented on the day of admission as per her operative note. She feels her arms are doing quite well. She has been up and about in her room. She is tolerating her diet appropriate. Physical Exam The incision site is clean dry and intact. There is no erythema no drainage. There is no purulence no evidence of infection. Her neck is soft and supple. There is no drainage on the dressing. Abdomen soft and nontender. Chest has good excursion with deep inspiration and expiration. The patient has active and passive range of motion intact at the upper and lower extremities. There is no acute change in neurologic status.She has good strength in her bilateral upper extremities Hospital Course postoperative day 1 status post anterior cervical decompression with discectomy and fusion at C4 5 C5 6 C4 her severe cervical stenosis The patient has been making good progress postoperatively. she feels her arms have made good improvement already with her surgery. They have completed the prophylactic antibiotics without any signs or symptoms of infection. The patient has been able to advance their diet, and is tolerating diet adequately. The pain was initially controlled with IV medications and is now controlled appropriately with oral medications. The patient has been able to increase their mobilization. The patient has progressed appropriately. I think they are in good stable condition for discharge today. They will be sent home with appropriate prescriptions. I answered their questions to the best of my ability in a language that they can understand and they are agreeable with the plan. They will follow up as directeIn 2 weeks or sooner if she is having problemsd. Patient Condition at Discharge: Good Plan - Discharge Summary Discharge Rx Participant: Yes New Discharge Prescriptions: New HYDROcodone/APAP 7.5-325MG [[place] 7.5-325] 1 tab PO Q8HR PRN #90 tab PRN Reason: Pain Diazepam [Valium] 5 mg PO TID PRN #90 tab PRN Reason: Spasms HYDROcodone/APAP 10-325MG [[place] 10-325] 1 tab PO Q8H PRN #90 tab PRN Reason: Severe Pain No Action Lisinopril-Hctz 20-12.5 mg [Zestoretic 20-12.5] 1 tab PO QAM Docusate [Colace] 100 mg PO DAILY PRN PRN Reason: Constipation Atorvastatin [Lipitor] 20 mg PO DAILY [place] 540 mg PO DAILY Fish Oil/Dha/Epa [Fish Oil 1,200 mg Fish Oil] 1 cap PO DAILY Ibuprofen [Motrin] 800 mg PO Q8H PRN PRN Reason: Pain HYDROcodone/APAP 7.5-325MG [[place] 7.5-325] 1 tab PO Q4H PRN PRN Reason: Pain Multivit with Calcium,Iron,Min [Women's Multivitamin] 1 tab PO DAILY Discharge Medication List Lisinopril-Hctz 20-12.5 mg [Zestoretic 20-12.5] 1 tab PO QAM 11/21/13 [History] Atorvastatin [Lipitor] 20 mg PO DAILY 07/19/16 [History] Black Cohosh 540 mg PO DAILY 07/19/16 [History] Docusate [Colace] 100 mg PO DAILY PRN 07/19/16 [History] Fish Oil/Dha/Epa [Fish Oil 1,200 mg Fish Oil] 1 cap PO DAILY 08/15/16 [History] Ibuprofen [Motrin] 800 mg PO Q8H PRN 10/15/16 [History] HYDROcodone/APAP 7.5-325MG [[place] 7.5-325] 1 tab PO Q4H PRN 01/03/17 [History] Multivit with Calcium,Iron,Min [Women's Multivitamin] 1 tab PO DAILY 01/03/17 [ History] HYDROcodone/APAP 7.5-325MG [[place] 7.5-325] 1 tab PO Q8HR PRN #90 tab 02/08/17 [ Rx] Diazepam [Valium] 5 mg PO TID PRN #90 tab 02/09/17 [Rx] HYDROcodone/APAP 10-325MG [[place] 10-325] 1 tab PO Q8H PRN #90 tab 02/09/17 [Rx] Follow up Appointment(s)/Referral(s): Hai Kline DO [Doctor of Osteopathic Medicine] - 2 Weeks (With Stoney Rodriguez at Dr. Kline's office) Activity/Diet/Wound Care/Special Instructions: Keep site clean May shower with waterproof Tegaderm intact. Do not soak in a tub. May ambulate to tolerance. Avoid heavy or rigorous activity. No overhead work. No repetitive bending twisting or lifting.
== END 2017-02-09 12:34 | disposition home or self-care (01) | DRG 321 ==
LOC: OR 06:23 → 3SUR 10:27 → OR 11:00
PROVIDERS: ADMIT Orthopaedic Surgery Orthopaedic Surgery of the Spine; ATTEND Orthopaedic Surgery Orthopaedic Surgery of the Spine
PROC: 0RG20A0 Fusion of 2 or more Cervical Vertebral Joints with Interbody Fusion Device, Anterior Approach, Anterior Column, Open Approach (ICD-10-PCS; 2017-02-08)
PROC: 0RT30ZZ Resection of Cervical Vertebral Disc, Open Approach (ICD-10-PCS; principal; 2017-02-08 08:00)
DX: M50.122 Cervical disc disorder at C5-C6 level with radiculopathy (principal); I10 Essential (primary) hypertension; M48.02 Spinal stenosis, cervical region; R53.1 Weakness; K21.9 Gastro-esophageal reflux disease without esophagitis; R26.81 Unsteadiness on feet; Z96.642 Presence of left artificial hip joint; E78.5 Hyperlipidemia, unspecified; M19.90 Unspecified osteoarthritis, unspecified site; Z79.1 Long term (current) use of non-steroidal anti-inflammatories (NSAID); Z79.899 Other long term (current) drug therapy; Z87.891 Personal history of nicotine dependence; Z79.891 Long term (current) use of opiate analgesic
CPT/HCPCS: 72020; 86850; 86900; 86901

== ENCOUNTER → 2018-01-24 | Outpatient (CLI) | payer OTHER ==
--- NOTE | 2018-01-26 10:59 | MM ---
Reason for exam: screening (asymptomatic). Last mammogram was performed 1 year ago. History: Patient is postmenopausal. Took hormonal contraceptives for 3 years beginning at age 17. Physical Findings: A clinical breast exam by your physician is recommended on an annual basis and results should be correlated with mammographic findings. MG Screening Mammo w CAD Bilateral CC and MLO view(s) were taken. Prior study comparison: January 23, 2017, bilateral MG screening mammo w CAD. January 22, 2016, bilateral MG screening mammo w CAD. There are scattered fibroglandular densities. No significant changes when compared with prior studies. ASSESSMENT: Negative, BI-RAD 1 RECOMMENDATION: Routine screening mammogram of both breasts in 1 year.
== END | disposition home or self-care (01) ==
LOC: RADMAMWWP 13:12
PROVIDERS: ATTEND Family Medicine
DX: Z12.31 Encounter for screening mammogram for malignant neoplasm of breast (principal)
CPT/HCPCS: 77067

== ENCOUNTER 2018-03-22 09:17 | Day surgery (SDC) | payer OTHER ==
[2018-03-20 13:50] VITALS: BMI 34.0
[~2018-03-22 09:17] MED LIST changes: -BACITRACIN 50,000 UNIT, POLYMYXIN B 500,000 UNIT in SODIUM CHLORIDE 0.9% IRRIGATIO 1,00... IRRIGATION ONE; +LACTATED RINGERS 1,000 ML IV SCH; -ONDANSETRON 4 MG/2 ML VIAL IVP ONE; -SCOPOLAMINE 1.5MG/72HR PATCH TRANSDERM ONE; -ceFAZolin 2 GM in SODIUM CHLORIDE 0.9% 100 ML IVPB ONE
[2018-03-22 09:41] VITALS: TEMP 97.5
[2018-03-22] MEDS ORDERED: PROPOFOL 10 MG/ML 20 ML VIAL IV ONE (11:35)
[2018-03-22] MEDS ORDERED: LIDOCAINE 1% INJ 10MG/ML (20 ML MDV) ONE (11:35)
[2018-03-22 12:34] VITALS: BP 128/66; PULSE 66; RESP 18
--- NOTE | 2018-03-22 13:29 | P.PCN ---
Date of Procedure: 03/22/18 Description of Procedure: BRIEF HISTORY: Patient is a 52-year-old, pleasant, female with medical history significant for hypertension and prior tobacco abuse who was scheduled today after recent hospitalization with complaints of intractable heartburn. Patient denies any history of dysphagia or odynophagia is a known history of reflux disease for which she takes omeprazole 20 mg twice daily. The patient does note breakthrough symptoms if she misses her medications.. PROCEDURE PERFORMED: Esophagogastroduodenoscopy with biopsy. PREOPERATIVE DIAGNOSIS: GERD. ESTIMATED BLOOD LOSS: Minimal. IV sedation per anesthesia. PROCEDURE: After informed consent was obtained, the patient was brought into the endoscopy unit. IV sedation was administered by Anesthesia under continuous monitoring. Initially the Olympus GIF-190 video endoscope was inserted into the mouth. Esophagus intubated without any difficulty. It was gradually advanced into the stomach and duodenum and carefully examined. The bulb and the second part of the duodenum appeared were significant for duodenitis with duodenal biopsies taken. The scope at this time was withdrawn to the stomach, adequately insufflated with air, and upon careful examination, mucosa of the antrum, body, cardia and the fundus appeared grossly normal with some scattered mild erythema located in the antrum and body, with biopsies taken. The scope was then withdrawn into the esophagus. The GE junction was located at 36 cm from the incisors with biopsies taken. The esophagus appeared normal. There were no erosions or ulcerations seen and the patient tolerated the procedure well. IMPRESSION: 1. Duodenitis, biopsied. 2. Gastritis, biopsied. 3. Normal GE junction, biopsied. RECOMMENDATIONS: The findings of this examination were discussed with the patient and her fianc. Continue Prilosec twice daily. Await pathology from biopsies. Follow up with gastroenterology as previously scheduled.
== END 2018-03-22 13:40 | disposition home or self-care (01) ==
LOC: ORWHC2ENDO 09:17
PROVIDERS: ATTEND Internal Medicine
DX: K29.50 Unspecified chronic gastritis without bleeding (principal); K29.80 Duodenitis without bleeding; K21.0 Gastro-esophageal reflux disease with esophagitis; I10 Essential (primary) hypertension; E78.5 Hyperlipidemia, unspecified; Z87.891 Personal history of nicotine dependence; Z79.1 Long term (current) use of non-steroidal anti-inflammatories (NSAID); Z79.899 Other long term (current) drug therapy
CPT/HCPCS: 88305; 43239; J2001; J2704

== ENCOUNTER → 2018-05-23 | Outpatient (CLI) | payer OTHER | END | disposition home or self-care (01) | LOC: LABWHC1 09:03 | PROVIDERS: ATTEND Internal Medicine Cardiovascular Disease | DX: E78.5 Hyperlipidemia, unspecified (principal) | CPT/HCPCS: 36415; 83704 ==

== ENCOUNTER → 2019-03-01 | Outpatient (CLI) | payer MEDICARE ==
--- NOTE | 2019-03-04 11:13 | MM ---
Reason for exam: screening (asymptomatic). Last mammogram was performed 1 year and 1 month ago. History: Patient is postmenopausal. Took hormonal contraceptives for 3 years beginning at age 17. Physical Findings: A clinical breast exam by your physician is recommended on an annual basis and results should be correlated with mammographic findings. MG Screening Mammo w CAD Bilateral CC and MLO view(s) were taken. Prior study comparison: January 24, 2018, bilateral MG screening mammo w CAD. January 23, 2017, bilateral MG screening mammo w CAD. There are scattered fibroglandular densities. There is no discrete abnormality. No significant changes when compared with prior studies. ASSESSMENT: Negative, BI-RAD 1 RECOMMENDATION: Routine screening mammogram of both breasts in 1 year.
== END | disposition home or self-care (01) ==
LOC: RADMAMWWP 13:47
PROVIDERS: ATTEND Family Medicine
DX: Z12.31 Encounter for screening mammogram for malignant neoplasm of breast (principal)
CPT/HCPCS: 77067

== ENCOUNTER → 2019-10-18 | Outpatient (CLI) | payer MEDICARE ==
--- NOTE | 2019-10-18 10:18 | BD ---
EXAMINATION TYPE: Axial Bone Density DATE OF EXAM: 10/18/2019 COMPARISON: 01/12/2016 CLINICAL HISTORY: Height: 61 IN Weight: 188 LBS RISK FACTORS HISTORY OF: Surgery to Hip(left): YES When: 2013 Active: YES Diet low in dairy products/other sources of calcium: YES Postmenopausal woman: AGE 49 MEDICATIONS: Additional Medications: OMEPRAZOLE, ATORVASTATIN, LISINOPRIL, METOPROLOL, FISH OIL EXAM MEASUREMENTS: Bone mineral densitometry was performed using the [employer] System. Bone mineral density as measured about the Lumbar spine is: ----- L1-L4(G/cm2): 1.688 T Score Values are as follows: ----- L2: 4.5 ----- L3: 4.4 ----- L4: 3.6 ----- L1-L4: 4.2 Bone mineral density has: Increased 1.5% since study of: 01/22/2016 Bone mineral density about the R hip (g/cm2): 1.186 T Score values are as follows: -----R Neck: 1.1 -----R Total: 1.8 Bone mineral density has: Increased 0.4% since study of: 01/22/2016 IMPRESSION: No evidence for osteoporosis or osteopenia. NOTE: T-SCORE=SD OF THE YOUNG ADULT MEAN.
== END | disposition home or self-care (01) ==
LOC: RADBDWWP 08:21
PROVIDERS: ATTEND Family Medicine
DX: Z13.820 Encounter for screening for osteoporosis (principal); Z78.0 Asymptomatic menopausal state
CPT/HCPCS: 77080

== ENCOUNTER → 2020-01-27 | Outpatient (CLI) | payer MEDICARE ==
[2020-01-27 15:00] LABS: Chol/HDL Ratio 2.73; LDL Cholesterol,Calculated 90.8 mg/dL (0.0-131.0); VLDL Calculation 16.2 mg/dL (5.00-40.00)
== END | disposition home or self-care (01) ==
LOC: LABWHC1 08:13
PROVIDERS: ATTEND Physician Assistant
DX: E78.5 Hyperlipidemia, unspecified (principal)
CPT/HCPCS: 36415; 80061

== ENCOUNTER → 2020-05-29 | Outpatient (CLI) | payer MEDICARE ==
--- NOTE | 2020-06-01 14:55 | MM ---
Reason for exam: screening (asymptomatic). Last mammogram was performed 1 year and 3 months ago. History: Patient is postmenopausal. Took hormonal contraceptives for 3 years beginning at age 17. Physical Findings: A clinical breast exam by your physician is recommended on an annual basis and results should be correlated with mammographic findings. MG Screening Mammo w CAD Bilateral CC and MLO view(s) were taken. Prior study comparison: March 01, 2019, bilateral MG screening mammo w CAD. January 24, 2018, bilateral MG screening mammo w CAD. Finding: There are three new typically benign equal density (isodense), circumscribed round masses located 10 cm from the nipple in the upper outer quadrant, middle position of the right breast on CC view. Stable nodule right CC view. ASSESSMENT: Incomplete: need additional imaging evaluation, BI-RAD 0 RECOMMENDATION: Ultrasound of the right breast. [facility] will attempt to contact patient to return for ultrasound.
== END | disposition home or self-care (01) ==
LOC: RADMAMWWP 14:47
PROVIDERS: ATTEND Family Medicine
DX: Z12.31 Encounter for screening mammogram for malignant neoplasm of breast (principal)
CPT/HCPCS: 77067

== ENCOUNTER → 2020-06-09 | Outpatient (CLI) | payer MEDICARE ==
--- NOTE | 2020-06-09 14:03 | USB ---
Reason for exam: additional evaluation requested from abnormal screening. History: Patient is postmenopausal. Took hormonal contraceptives for 3 years beginning at age 17. Physical Findings: Nurse did not find any significant physical abnormalities on exam. US Breast Workup Limited RT Right limited breast ultrasound including focal area of concern, retroareolar and axilla demonstrates no cystic or solid lesion seen. These results were verbally communicated with the patient and result sheet given to the patient on 06/09/20. ASSESSMENT: Negative, BI-RAD 1 RECOMMENDATION: Follow-up diagnostic mammogram of the right breast in 6 months.
== END ==
LOC: RADUSWWP 12:53
PROVIDERS: ATTEND Family Medicine
DX: R92.8 Other abnormal and inconclusive findings on diagnostic imaging of breast (principal); Z78.0 Asymptomatic menopausal state

== ENCOUNTER → 2020-09-09 | Outpatient (CLI) | payer MEDICARE ==
--- NOTE | 2020-09-09 21:21 | CONS ---
CONSULTATION DATE OF SERVICE: 09/09/2020 55-year-old lady has been evaluated in the sleep center for possible obstructive sleep apnea-hypopnea syndrome. HISTORY OF PRESENT ILLNESS/SLEEP WAKE EVALUATION: SLEEP SCHEDULE: Patient's usual sleep schedule from 9 or 10 p.m. until 6 or 7 a.m. FALLING ASLEEP: Sometimes she has problems with falling asleep, but usually not for very long time, although she has a TV set in bedroom. DURING SLEEP: She prefers to sleep on the side and stomach position. She snores and wakes up from sleep 3 times with 2 episodes of nocturia. She tosses and turns during the night. No history of hypnagogic hallucinations, sleep paralysis or cataplexy. DURING THE DAY/SLEEP WAKE EVALUATION: In the morning, she wakes up tired, has problems with memory. [place] Sleepiness Scale is 4. PAST MEDICAL HISTORY: Positive for hypertension, hyperlipidemia, acid reflux, bradycardia by Holter monitor according to the patient. PAST SURGICAL HISTORY: Status post left knee total replacement. Neck surgery for the replacement of the discs. SOCIAL HISTORY: Positive for smoking for about 30 pack years, quit 7 years ago. Alcohol: Some consumption occasional. FAMILY HISTORY: Lung cancer by her brother. REVIEW OF SYSTEMS: Multiple awakenings from sleep. PHYSICAL EXAMINATION: GENERAL: lady without distress. BP 168/53, HR 56, RR 18, height 5 feet 1-1/2 inches, weight 185.6 pounds, temperature 97.1. Oxygen saturation at room air 98%. HEENT: PERRLA, EOMI. Oropharynx extremely low position of soft palate. Mallampati IV. NECK: 16 inches in circumference. Body mass index 34.3. Neck: Supple, no JVD. Thyroid is not palpable. LUNGS: Clear to percussion and to auscultation. Good air exchange. No wheezing or rhonchi. HEART: S1, S2 regular. No murmurs, gallops, or rubs. ABDOMEN: Obese. Soft and nontender. Bowel sounds are present. No organomegaly appreciated. EXTREMITIES: No clubbing or cyanosis. DEWER: Awake, alert, and oriented X3. Cranial nerves 2 to 7 intact. There is no fasciculation or atrophy. noted. No focal deficits observed. IMPRESSION: 1. Snoring, multiple awakenings from sleep, extremely low position of soft palate, Mallampati 4, wide neck 16 inches in circumference, obstructive sleep apnea- hypopnea syndrome. 2. Obesity, body mass index 34.3. 3. Hypertension. 4. Hyperlipidemia. 5. Acid reflux. 6. History of episodes of bradycardia by Holter monitor according to patient. 7. Status post total left knee replacement. 8. Status post neck surgery for replacement of 3 discs. PLAN: 1. Polysomnography for evaluation of patient's breathing during sleep. 2. CPAP/BiPAP titration if sleep study confirms obstructive sleep apnea-hypopnea syndrome. 3. Preferable position during sleep on the side. 4. No driving if patient feels any sleepiness. 5. I will see patient for follow up visit to explain results of testing and following plan. Thank you very much for referring this patient for consultation. Sincerely, Rey Ricardo MD, PhD, FAASM Diplomat of [employer] Web Site Specialist of [facility] Kyle MMODL / IJN: [id number] /
== END ==
LOC: SLEEP 15:13
PROVIDERS: ATTEND Internal Medicine
DX: G47.33 Obstructive sleep apnea (adult) (pediatric) (principal); E66.9 Obesity, unspecified; E78.5 Hyperlipidemia, unspecified; I10 Essential (primary) hypertension; K21.9 Gastro-esophageal reflux disease without esophagitis; Z68.34 Body mass index [BMI] 34.0-34.9, adult; Z87.891 Personal history of nicotine dependence; Z96.652 Presence of left artificial knee joint; Z98.890 Other specified postprocedural states; Z86.79 Personal history of other diseases of the circulatory system
CPT/HCPCS: 99211

== ENCOUNTER → 2020-10-01 | Outpatient (CLI) | payer MEDICARE ==
--- NOTE | 2020-10-01 07:43 | US ---
EXAMINATION TYPE: US duplex aorta DATE OF EXAM: 10/01/2020 COMPARISON: 02/28/2015, 02/28/2015 CLINICAL HISTORY: Z13.6 Screening for abdominal aortic aneurysm. Smoker for 35 years. Quit 7 years ag o EXAM MEASUREMENTS: Abdominal Aorta: Proximal: 2.6 x 2.7 x 2.4 Mid: 1.8 x 2.6 x 2.4 cm Distal: 1.8 x 1.6 x 1.9 cm Bifurcation: RT: 1.1 x 1.1 x 0.9 cm LT: 1.1 x 0.9 x 0.9 cm Moderate atherosclerotic changes visualized. Proximal portion appears ectatic. No sonographic evidenc e for AAA on this exam IMPRESSION: No definite sonographic evidence for abdominal aortic aneurysm.
== END | disposition home or self-care (01) ==
LOC: RADUSWWP 06:55
PROVIDERS: ATTEND Family Medicine
DX: Z13.6 Encounter for screening for cardiovascular disorders (principal); Z87.891 Personal history of nicotine dependence
CPT/HCPCS: 93979

== ENCOUNTER 2020-10-28 07:58 | Day surgery (SDC) | payer MEDICARE ==
[2020-10-26 13:37] VITALS: BMI 34.5
[~2020-10-28 07:58] MED LIST changes: +LIDOCAINE 1% (10MG/ML) FOR IV START INTRADERMA PRN; -LIDOCAINE 1% 20 ML VIAL (10MG/ML) FOR IV START INTRADERMA PRN
[2020-10-28 08:34] VITALS: RESP 16; TEMP 97.3
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
[2020-10-28] MEDS ORDERED: LIDOCAINE 1% INJ 10MG/ML (20 ML MDV) ONE (09:07)
[2020-10-28] MEDS ORDERED: PROPOFOL 10 MG/ML 20 ML VIAL IV ONE (09:07)
--- NOTE | 2020-10-28 09:37 | P.PCN ---
Date of Procedure: 10/28/20 Description of Procedure: PREOPERATIVE DIAGNOSIS: Personal history of colon polyps Colonoscopy screening POSTOPERATIVE DIAGNOSIS: Personal history of colon polyps Colonoscopy screening Sigmoid colon polyp Internal hemorrhoids, grade 2 OPERATION: Colonoscopy to the ileocecal valve and appendiceal orifice, cecum Colonoscopy with cold forceps biopsy SURGEON: Valery Peres MD. ANESTHESIA: MAC. INDICATIONS: The patient is an 55-year-old female who presents personal history of colon polyps. Last colonoscopy 5 years. Benefits and risks were described and informed consent was obtained. DESCRIPTION OF PROCEDURE: The patient had undergone Sutab prep. The patient had been brought into the ope rating room and laid in the left lateral decubitus position. After adequate intravenous sedation, the rectum was examined with 2% lidocaine jelly. External hemorrhoids were encountered. The rectal tone was within normal limits. No lesions were palpated in the rectal vault. An Olympus colonoscope was advanced until the cecum, ileocecal valve and appendiceal orifice were clearly viewed. The prep was excellent. No large sigmoid diverticulosis was encountered. Colonic polyps were found and removed. No evidence of focal colitis was found. Retroflexion of the scope demonstrated grade 2 internal hemorrhoids without active bleeding or inflammation. The colon was desufflated. The patient had tolerated the procedure well. Withdrawal time was over 6 minutes. FINDINGS: Aronchick preparation quality scale 1 (1-5) Internal hemorrhoids, grade 2 External hemorrhoids, grade 2. No arteriovenous malformations. Removal of 1 polyp: - Cold forceps biopsy at 20 cm from the anal verge, 4 mm polyp, sigmoid colon No focal colitis. RECOMMENDATIONS: Repeat colonoscopy in 3 years, 2023
--- NOTE | 2020-10-28 09:38 | P.PCN ---
Date of Procedure: 10/28/20 Description of Procedure: PREOPERATIVE DIAGNOSIS: Gastroesophageal reflux disease. POSTOPERATIVE DIAGNOSIS: Gastritis. Gastroesophageal reflux disease. Diaphragmatic hiatal hernia OPERATION: Esophagogastroduodenoscopy with biopsies along antrum. SURGEON: Valery Peres MD ANESTHESIA: MAC. INDICATIONS: The patient is a 55-year-old female who presents with a history of reflux disease. Benefits and risks of the procedure were described. Informed consent was obtained. DESCRIPTION: The patient was brought into the endoscopy suite and laid in the left lateral decubitus position. An Olympus gastroscope was passed along the posterior oropharynx down to the distal esophagus where the squamocolumnar junction was encountered at 35 cm from the incisors. The stomach was entered and no bile reflux was found. Additional findings are listed below. Biopsies with cold forceps were obtained of the antrum. The first through third portion of the duodenum was examined and unremarkable. Retroflexion of the scope confirmed Hill grade 2 lower esophageal valve. The squamocolumnar junction demonstrated LA grade A erosive esophagitis. The stomach was desufflated. The patient tolerated the procedure well. FINDINGS: Squamocolumnar junction 35 cm from the incisors. Diaphragmatic hiatus at 35 cm. Hill grade 2 lower esophageal valve. LA grade A erosive esophagitis. No active duodenitis. Chronic gastritis, moderate RECOMMENDATIONS: Upper endoscopy as needed. Plan - Discharge Summary New Discharge Prescriptions: No Action Lisinopril-Hctz 20-12.5 mg [Zestoretic 20-12.5] 1 tab PO QAM Fish Oil/Dha/Epa [Fish Oil 1,200 mg Fish Oil] 2,400 mg PO DAILY Ibuprofen [Motrin] 800 mg PO DAILY PRN PRN Reason: Pain Omeprazole 20 mg PO DAILY Metoprolol Succinate (ER) [Toprol Xl] 25 mg PO DAILY Atorvastatin [Lipitor] 40 mg PO DAILY Ascorbic Acid [Vitamin C] 500 mg PO DAILY Cannabidiol (Cbd) [Epidiolex] 1 dose PO DIRECTED PRN PRN Reason: Pain Discharge Medication List Lisinopril-Hctz 20-12.5 mg [Zestoretic 20-12.5] 1 tab PO QAM 11/21/13 [History] Fish Oil/Dha/Epa [Fish Oil 1,200 mg Fish Oil] 2,400 mg PO DAILY 08/15/16 [History] Ibuprofen [Motrin] 800 mg PO DAILY PRN 10/15/16 [History] Ascorbic Acid [Vitamin C] 500 mg PO DAILY 10/26/20 [History] Atorvastatin [Lipitor] 40 mg PO DAILY 10/26/20 [History] Cannabidiol (Cbd) [Epidiolex] 1 dose PO DIRECTED PRN 10/26/20 [History] Metoprolol Succinate (ER) [Toprol Xl] 25 mg PO DAILY 10/26/20 [History] Omeprazole 20 mg PO DAILY 10/26/20 [History]
[2020-10-28 09:42] VITALS: PULSE 62
[2020-10-28 09:56] VITALS: BP 148/79
== END 2020-10-28 10:11 | disposition home or self-care (01) ==
LOC: ORWHC2ENDO 07:58
PROVIDERS: ATTEND Surgery Plastic and Reconstructive Surgery
DX: Z12.11 Encounter for screening for malignant neoplasm of colon (principal); K64.1 Second degree hemorrhoids; K44.9 Diaphragmatic hernia without obstruction or gangrene; K21.9 Gastro-esophageal reflux disease without esophagitis; Z86.010 Personal history of colon polyps; E78.5 Hyperlipidemia, unspecified; I10 Essential (primary) hypertension; M19.90 Unspecified osteoarthritis, unspecified site; Z87.19 Personal history of other diseases of the digestive system; R00.2 Palpitations; R26.2 Difficulty in walking, not elsewhere classified; Z96.642 Presence of left artificial hip joint; Z98.890 Other specified postprocedural states; Z87.891 Personal history of nicotine dependence; Z80.9 Family history of malignant neoplasm, unspecified; Z79.899 Other long term (current) drug therapy; K22.10 Ulcer of esophagus without bleeding; K29.50 Unspecified chronic gastritis without bleeding
CPT/HCPCS: 88305; 45380; 43239; J2001; J2704

== ENCOUNTER → 2020-12-01 | Outpatient (CLI) | payer MEDICARE ==
--- NOTE | 2020-12-01 09:43 | MM ---
Reason for exam: follow-up at short interval from prior study. Last mammogram was performed 6 months ago. History: Patient is postmenopausal. Took hormonal contraceptives for 3 years beginning at age 17. Physical Findings: Nurse did not find any significant physical abnormalities on exam. MG 3D Diag Mammo W/Cad RT CC and MLO view(s) were taken of the right breast. Prior study comparison: May 29, 2020, bilateral MG screening mammo w CAD. March 01, 2019, bilateral MG screening mammo w CAD. There are scattered fibroglandular densities. Benign calcifications. There is chronic nodularity in the right breast. These results were verbally communicated with the patient and result sheet given to the patient on 12/01/20. ASSESSMENT: Benign, BI-RAD 2 RECOMMENDATION: Return to routine screening mammogram schedule for both breasts. Back on schedule.
== END | disposition home or self-care (01) ==
LOC: RADMAMWWP 08:10
PROVIDERS: ATTEND Family Medicine
DX: R92.8 Other abnormal and inconclusive findings on diagnostic imaging of breast (principal)
CPT/HCPCS: 77065; G0279; 77061

== ENCOUNTER → 2021-01-22 | Outpatient (CLI) | payer MEDICARE | END | disposition home or self-care (01) | LOC: LABWHC1 16:21 | PROVIDERS: ATTEND Family Medicine | DX: Z20.822 Contact with and (suspected) exposure to COVID-19 (principal); J06.9 Acute upper respiratory infection, unspecified | CPT/HCPCS: 87502; U0003; C9803; U0005 ==

== ENCOUNTER → 2021-04-28 | Outpatient (CLI) | payer MEDICARE ==
[2021-04-28 14:46] LABS: Chol/HDL Ratio 2.76 Ratio; LDL Cholesterol,Calculated 104.2 mg/dL (0.0-131.0); VLDL Calculation 18.82 mg/dL (5.00-40.00)
== END | disposition home or self-care (01) ==
LOC: LABWHC1 10:33
PROVIDERS: ATTEND Nurse Practitioner Adult Health
DX: E78.5 Hyperlipidemia, unspecified (principal)
CPT/HCPCS: 36415; 80061; 83721

== ENCOUNTER → 2021-06-21 | Outpatient (CLI) | payer MEDICARE ==
--- NOTE | 2021-06-23 09:29 | MM ---
Reason for exam: screening (asymptomatic). Last mammogram was performed 7 months ago. History: Patient is postmenopausal. Took hormonal contraceptives for 3 years beginning at age 17. Physical Findings: A clinical breast exam by your physician is recommended on an annual basis and results should be correlated with mammographic findings. MG 3D Screening Mammo W/Cad Bilateral CC and MLO view(s) were taken. Prior study comparison: December 01, 2020, right breast MG 3d diag mammo w/cad RT. May 29, 2020, bilateral MG screening mammo w CAD. There are scattered fibroglandular densities. There is chronic nodularity in the right breast. Gradually enlarging mole medial posterior right breast. Recommend direct inspection. No significant changes when compared with prior studies. ASSESSMENT: Benign, BI-RAD 2 RECOMMENDATION: Routine screening mammogram of both breasts in 1 year. Manage patient on a clinical basis. Possible dermatology referral for an enlarging mole medial right breast.
== END | disposition home or self-care (01) ==
LOC: RADMAMWWP 11:34
PROVIDERS: ATTEND Family Medicine
DX: Z12.31 Encounter for screening mammogram for malignant neoplasm of breast (principal); Z78.0 Asymptomatic menopausal state
CPT/HCPCS: 77063; 77067

== ENCOUNTER → 2021-11-18 | Outpatient (CLI) | payer MEDICARE ==
--- NOTE | 2021-11-18 11:25 | P.PN ---
Subjective DATE: 11/18/2021 FOLLOW UP VISIT. Patient with obstructive sleep apnea hypopnea syndrome return to sleep center for follow-up visit. Recently patient had sleep study which documented obstructive sleep apnea hypopnea syndrome. Patient was initiated on PAP therapy and today is first visit after treatment was started. I discussed the results of the sleep studies with patient in details. Patient was able to use PAP equipment every night for the whole night. The patient does not have significant problems with the mask, PAP pressure and humidification. [place] sleepiness scale is 5. I checked information from PAP unit. PAP unit pressure 5-10, average 9.4 cm H2O. Usage is 87 % for more then 4 hours, average 7.5 hours per night. Leak is 3.6 l/m, which is in acceptable range. Apnea Hypopnea Index is 4.1, which is normal. MEDICATIONS:1. Lisinopril 2. Metoprolol 3. Rosuvastatin 4. Omeprazole During physical exam: GENERAL: A pleasant patient without any distress. VITAL SIGNS: BP 162/68, heart rate 52 [], RR18 , exsq511.2tem 97.1oxygen saturation at room air 98% HEENT: PERRLA, EOMI.low position of soft palate, Mallapati[4 . NECK: Supple. No JVD. LUNGS: Clear to percussion and to auscultation. Good air exchange. No wheezing or rhonchi. HEART: S1, S2 regular. ABDOMEN: Soft and nontslightly obese EXTREMITIES: No clubbing or cyanosis. 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 No focal deficit. Impressions: 1. Obstructive sleep apnea-hypopnea syndrome in severe range, apnea-hypopnea index 40.4 . Patient demonstrated great compliance with treatment, benefiting from treatment. 2. Hypertension 3 Acid reflux []. 4. []. Hyperlipidemia 5. []. Mild obesity 6. []. History of bradycardic episodes 7. []. Status post total left knee replacement 8. []. Status post neck surgery for replacement of 3 disks Plan: 1. Continue using PAP equipment every night for the whole night. 2. To change air filter at least 1-2 times per month. 3. PAP unit should stay lower then position of the head. 4. Advised patient to remove all remaining water from humidifier canister daily and make it dry after each usage. Refill canister with fresh distilled water before each usage. 5. Sleep hygiene with regular time in bed for at least 8 hours. 6. Precautions related to driving. No driving if feel any sleepiness. 7. I will maintain prescription for PAP supplies including mask, tube, filters. 8. Follow up visit in 6 months or earlier if patient has any problems. 9. Watching weight. Thank you very much for allowing me to participate in the management of your patient. Rey Ricardo MD, PhD, FAASM. Diplomat of [place] [employer], Sleep Medicine Board by [place] [employer] Manifold Operator of [facility] [place]
== END ==
LOC: SLEEP 10:37
PROVIDERS: ATTEND Internal Medicine
DX: G47.33 Obstructive sleep apnea (adult) (pediatric) (principal); I10 Essential (primary) hypertension; K21.9 Gastro-esophageal reflux disease without esophagitis; E78.5 Hyperlipidemia, unspecified; E66.9 Obesity, unspecified; Z96.652 Presence of left artificial knee joint; Z98.890 Other specified postprocedural states; Z86.79 Personal history of other diseases of the circulatory system; Z99.89 Dependence on other enabling machines and devices; Z88.8 Allergy status to other drugs, medicaments and biological substances; Z87.891 Personal history of nicotine dependence

== ENCOUNTER → 2022-07-19 | Day surgery (SDC) | payer MEDICARE ==
[~2022-07-19] MED LIST changes: +DEXAMETHASONE SOD PHOSPHATE 4 MG/ML 1 ML VIAL IVP ONE; +HEPARIN SODIUM,PORCINE/PF 5,000 UNIT/0.5 ML SYRINGE SQ PRN; +HYDROcodone/APAP 5-325MG 1 EACH TAB ONE; +HYDROcodone/APAP 5-325MG 1 EACH TAB PO ONE; +HYDROmorphone (PF) 1 MG/ML ONE; +LACTATED RINGERS 1,000 ML IV ONE; -LACTATED RINGERS 1,000 ML IV SCH; -LIDOCAINE 1% (10MG/ML) FOR IV START INTRADERMA PRN; +LIDOCAINE 2% INJ 20 MG/ML (2 ML VIAL) ONE; +MIDAZOLAM 2 MG/2 ML VIAL ONE; +ONDANSETRON 4 MG/2 ML VIAL IVP ONE; +ONDANSETRON 4 MG/2 ML VIAL ONE; +PROPOFOL 10 MG/ML 20 ML VIAL IV ONE; +Pre Op ABX Message 1 EACH MISC MISCELLANE ONE; +ceFAZolin 1,000 MG VIAL IVPB ONE; +fentaNYL (PF) 50 MCG/ML 2 ML AMP ONE
[2022-07-19 15:27] VITALS: RESP 16
--- NOTE | 2022-07-19 16:51 | P.OP ---
Date of Procedure: 07/19/22 Preoperative Diagnosis: Abscess right breast Postoperative Diagnosis: Same Procedure(s) Performed: Incision and drainage infected sebaceous cyst/abscess right breast Anesthesia: TWINA Surgeon: Deloris Hughes Estimated Blood Loss (ml): 1 IV fluids (ml): 300 Pathology: other (infected sebaceous cyst) Condition: stable Disposition: same day Indications for Procedure: Infected sebaceous cyst Operative Findings: Infected sebaceous cyst Description of Procedure: The patient was taken to the operating room and following induction of anesthesia the right breast was prepped and draped in sterile fashion. An incision was made over the fluctuant area of what appeared to be an infected sebaceous cyst. Purulent discharge occurred as well as extensive intrusion of sebum. The wall of the cyst was easily extracted with the specimen. The wound was well irrigated. Cultures were obtained. The wound was packed. The patient tolerated the procedure in stable condition. All instrument and sponge counts were correct at the end of the case.
--- NOTE | 2022-07-19 16:52 | P.DS ---
Providers Attending physician: Deloris Hughes Primary care physician: Iron Garrido Plan - Discharge Summary New Discharge Prescriptions: No Action Lisinopril-Hctz 20-12.5 mg [Zestoretic 20-12.5] 1 tab PO QAM Omeprazole [PriLOSEC] 40 mg PO DAILY #14 cap Cephalexin [Keflex] 500 mg PO Q6HR Metoprolol Succinate (ER) [Toprol XL] 25 mg PO DAILY Atorvastatin [Lipitor] 40 mg PO DAILY Discharge Medication List Lisinopril-Hctz 20-12.5 mg [Zestoretic 20-12.5] 1 tab PO QAM 11/21/13 [History] Atorvastatin [Lipitor] 40 mg PO DAILY 10/26/20 [History] Metoprolol Succinate (ER) [Toprol XL] 25 mg PO DAILY 10/26/20 [History] Omeprazole [PriLOSEC] 40 mg PO DAILY #14 cap 10/28/20 [Rx] Cephalexin [Keflex] 500 mg PO Q6HR 07/19/22 [History] Follow up Appointment(s)/Referral(s): Deloris Hughes MD [STAFF PHYSICIAN] - 3 Days Activity/Diet/Wound Care/Special Instructions: teach patient how to change packing Discharge Disposition: HOME SELF-CARE
[2022-07-19 17:25] VITALS: TEMP 98.4
[2022-07-19 18:00] VITALS: BP 160/75; PULSE 63
== END | disposition home or self-care (01) ==
LOC: OR 15:06
PROVIDERS: ATTEND Surgery
DX: N61.1 Abscess of the breast and nipple (principal); L72.3 Sebaceous cyst; Z79.899 Other long term (current) drug therapy
CPT/HCPCS: 87070; 87205; 10060; J2250; J1100; J2405; J0690; J3010; J1170; J2704; J1644; J2001; 88304

== ENCOUNTER → 2022-07-19 | Outpatient (CLI) | payer MEDICARE ==
[2022-07-19 07:42] VITALS: BP 136/81; PULSE 51; RESP 18; TEMP 97.7
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
== END ==
LOC: WWCWWP 07:28
PROVIDERS: ATTEND Surgery
DX: N61.1 Abscess of the breast and nipple (principal); E78.00 Pure hypercholesterolemia, unspecified; I10 Essential (primary) hypertension; K21.9 Gastro-esophageal reflux disease without esophagitis; M19.90 Unspecified osteoarthritis, unspecified site; Z80.1 Family history of malignant neoplasm of trachea, bronchus and lung; Z87.891 Personal history of nicotine dependence; E78.5 Hyperlipidemia, unspecified

== ENCOUNTER 2022-07-21 08:57 | Emergency (ER) | payer MEDICARE ==
[2022-07-21 09:07] VITALS: BP 158/77; PULSE 57; RESP 18; TEMP 98
[2022-07-21] MEDS: HYDROmorphone 1 MG/ML 1 ML SYRINGE IM STA (09:33)
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
== END 2022-07-21 10:46 | disposition home or self-care (01) ==
LOC: EC 08:57
DX: N60.01 Solitary cyst of right breast (principal); E78.5 Hyperlipidemia, unspecified; I10 Essential (primary) hypertension; F12.90 Cannabis use, unspecified, uncomplicated; Z87.891 Personal history of nicotine dependence; Z79.899 Other long term (current) drug therapy
CPT/HCPCS: 99284; 96372; J1170

== ENCOUNTER → 2022-07-22 | Outpatient (CLI) | payer MEDICARE ==
[2022-07-22 10:22] VITALS: BP 149/79; PULSE 69; RESP 18; TEMP 98.1
--- NOTE | 2022-07-22 11:09 | P.PN ---
Progress Note - Text Progress Note Date: 07/22/22 Julianna is a 56 year old white female status post 07-19-22 I&D of infected cyst. Cultures revealed gm + cocci. The patient states she does have discomfort when the area is packed. She is not complaining of any fever or chills. Examination: Lungs: Clear Heart: Regular rate and rhythm Area of cyst is clean and dry and is packed Plan: Continue present therapy Follow-up in 2 weeks CC: Dr.Aaron Garrido
== END ==
LOC: WWCWWP 09:48
PROVIDERS: ATTEND Surgery
DX: N60.01 Solitary cyst of right breast (principal); Z87.891 Personal history of nicotine dependence

== ENCOUNTER → 2022-08-11 | Outpatient (CLI) | payer MEDICARE ==
[2022-08-11 11:01] VITALS: BP 151/88; PULSE 71; RESP 18; TEMP 97.6
--- NOTE | 2022-08-11 11:09 | P.PN ---
Progress Note - Text Progress Note Date: 08/11/22 Julianna is a 56 year old white female status post 07-19-22 I&D of infected cyst. Cultures revealed gm + cocci. The patient states she does have discomfort when the area is packed. She is not complaining of any fever or chills. Patient has recently noticed an area on the left breast upper outer quadrant of small nodularity which is in the subcutaneous tissue tissue/skin and may represent an ingrown hair. Examination: Lungs: Clear Heart: Regular rate and rhythm Area of cyst is clean and dry and is packed Left breast upper outer quadrant approximately 3 mm area of nodularity in the subcutaneous tissue which may represent a small ingrown hair/cystic lesion Plan: Continue present therapy Follow-up in 2 weeks Patient will use warm compresses to the left breast and try to express any purulence that may be present otherwise will be checked again in 2 weeks or sooner if he can get a problem CC: Dr.Aaron Garrido Additional CC's: Iron Garrido
== END ==
LOC: WWCWWP 10:45
PROVIDERS: ATTEND Surgery
DX: Z85.3 Personal history of malignant neoplasm of breast (principal); N63.21 Unspecified lump in the left breast, upper outer quadrant; Z79.899 Other long term (current) drug therapy; Z79.891 Long term (current) use of opiate analgesic

== ENCOUNTER → 2022-08-26 | Outpatient (CLI) | payer MEDICARE ==
[2022-08-26 14:45] VITALS: BP 163/73; PULSE 55; RESP 18; TEMP 97.7
--- NOTE | 2022-08-26 14:53 | P.PN ---
Subjective Progress Note Date: 08/26/22 Julianna is a 56 year old white female status post 07-19-22 I&D of infected cyst. Cultures revealed gm + cocci. The patient states she does have discomfort when the area is packed. She is not complaining of any fever or chills. His unable to pack the area any longer. Examination: Lungs: Clear Heart: Regular rate and rhythm Area of cyst completely healed at this time in the right breast, in the left breast in the upper outer quadrant area that appears to be a small superficial ingrown hair. Patient is going to use warm compresses on at home Breast Exam: BRA: 42D Inspection: Ingrown hair upper outer quadrant left breast, right breast area of cyst completely healed Bilateral grade 2/3 ptosis Palpation: Right breast: Multiple positional exam fibrocystic changes no dominant masses or nodules of concern Right axilla: No adenopathy of concern Left breast: Multiple positional exam no dominant masses or nodules of concern Left axilla: No adenopathy of concern Plan: Bilateral mammogram and follow-up after the mammogram is done CC: Dr.Aaron Garrido Objective - Vital Signs Vital signs: Vital Signs Temp 97.7 F 08/26/22 14:41 Pulse 55 L 08/26/22 14:41 Resp 18 08/26/22 14:41 BP 163/73 08/26/22 14:41 Pulse Ox 97 08/26/22 14:41 FiO2
== END ==
LOC: WWCWWP 14:32
PROVIDERS: ATTEND Surgery
DX: Z85.3 Personal history of malignant neoplasm of breast (principal); Z87.891 Personal history of nicotine dependence

== ENCOUNTER → 2022-09-08 | Outpatient (CLI) | payer MEDICARE ==
--- NOTE | 2022-09-08 11:52 | BD ---
EXAMINATION TYPE: Axial Bone Density DATE OF EXAM: 09/08/2022 CLINICAL HISTORY: 57 years old Female. ICD-10 CODE: Z00.01 GENERAL ADULT MEDICAL EXAM Height: 60 Weight: 174 FRAX RISK QUESTIONS: History of Fracture in Adulthood: yes RISK FACTORS HISTORY OF: Spine Fracture: spinal, fxs and surgical repair, in her neck at 39 yrs old History of Wrist Fracture: lt wrist and hand at 36 yrs old Surgery to left hip...2014, lt hand and wrist at 36 yrs old, spinal surg, for neck Diet low in dairy products/other sources of calcium: yes Postmenopausal woman: yes, at 49 yrs old. Lost more than 2 inches in height since high school: yes Hyperparathyroidism: no Adrenal Insufficiency: no MEDICATIONS: Additional Medications: reflux meds, statin for cholesterol, bp meds, Additional History: reflux, cholesterol, hypertension, osteoarthritis, EXAM MEASUREMENTS: Bone mineral densitometry was performed using the [employer] System. Bone mineral density as measured about the Lumbar spine is: ----- L1-L4(G/cm2): 1.735 T Score Values are as follows: ----- L1: 4.7 ----- L2: 5.2 ----- L3: 4.6 ----- L4: 4.0 ----- L1-L4: 4.6 Z Score Values are as follows: ----- L1: 5.3 ----- L2: 5.8 ----- L3: 5.2 ----- L4: 4.6 ----- L1-L4: 5.2 Bone mineral density has: Increased 2.8% since study of: 10.18.2019 Bone mineral density about the R hip (g/cm2): 1.242 T Score values are as follows: -----R Neck: 1.7 -----R Total: 1.2 Z Score values are as follows: -----R Neck: 2.5 -----R Total: 1.7 Bone mineral density has: Increased 7.0% since study of: 10.18.2019 FRAX%s: The graph provided illustrates a 7.8% chance for a major osteoporotic fx and a 0.0% chance fo r the hips probability for fx in 10 years time. IMPRESSION: Normal (Values between +1 and -1 indicate normal bone mass). Consider repeating this study in 5 year s or sooner if there is some new clinical indication. NOTE: T-SCORE=SD OF THE YOUNG ADULT MEAN.
--- NOTE | 2022-09-09 08:27 | MM ---
Reason for Exam: Screening (asymptomatic). Last mammogram was performed 1 year(s) and 3 month(s) ago. Indicated Problems: Other indicated problem of both sides for 2 Month(s) : itchy nipples. Patient History: Menarche at age 12. First Full-Term at age 17. Postmenopausal. Hormonal Contraceptives for 3 years from age 17 until age 20. Risk Values: Rosetta 5 year model risk: 1.0%. NCI Lifetime model risk: 5.6%. Prior Study Comparison: 05/29/2020 Bilateral Screening Mammogram, [facility]. 12/01/2020 Right Diagnostic Mammogram, [facility]. 06/21/2021 Bilateral Screening Mammogram, [facility]. Tissue Density: There are scattered fibroglandular densities. Findings: Analyzed By CAD. There is no suspicious group of microcalcifications or new suspicious mass in either breast. Overall Assessment: Negative, BI-RAD 1 Management: Screening Mammogram of both breasts in 1 year. . Patient should continue monthly self-breast exams. A clinical breast exam by your physician is recommended on an annual basis. This exam should not preclude additional follow-up of suspicious palpable abnormalities. Note on Rosetta scores and lifetime risk: 1. A Rosetta score greater than 3% is considered moderate risk. If this is the case, consider specialist referral to assess eligibility for a risk reducing agent. 2. If overall lifetime risk for the development of breast cancer is 20% or higher, the patient may qualify for future screening with alternating mammogram and breast MRI. Electronically signed and approved by: Ernie Mata M.D. Radiologis
== END | disposition home or self-care (01) ==
LOC: RADMAMWWP 07:05
PROVIDERS: ATTEND Family Medicine
DX: Z12.31 Encounter for screening mammogram for malignant neoplasm of breast (principal); Z00.01 Encounter for general adult medical examination with abnormal findings; Z78.0 Asymptomatic menopausal state
CPT/HCPCS: 77063; 77067; 77080

== ENCOUNTER → 2022-12-07 | Outpatient (CLI) | payer MEDICARE ==
--- NOTE | 2022-12-07 18:25 | P.PN ---
Subjective DATE: 12/07/2022 FOLLOW UP VISIT. Patient with obstructive sleep apnea hypopnea syndrome return to sleep center for follow-up visit. Information from previous visit have been reviewed. Patient is using PAP equipment every night for the whole night, getting PAP supplies in time. The patient does not have significant problems with the mask, PAP unit and humidification. [place] sleepiness scale is 3, which is normal. I checked information from PAP unit. PAP unit pressure 5-10, average 9.5 cm H2O. Usage is 90 % for more then 4 hours, average 8 hours per night. Leak is 5.2 l/m, which is in acceptable range. Apnea Hypopnea Index is 3.9, which is normal. MEDICATIONS:1. Lisinopril/hydrochlorothiazide 20-25 mg once a day 2., Rosuvastatin 40 mg once a day 3. Omeprazole 40 mg once a day 4. Metoprolol 25 mg once a day During physical exam: GENERAL: A pleasant patient without any distress. VITAL SIGNS: BP 142/66, HR 64, RR 18, weight 176.0, temperature 97.1, oxygen saturation at room air 95 % . HEENT: PERRLA, EOMI.low position of soft palate, Mallapati 4 . NECK: Supple. No JVD. LUNGS: Clear to percussion and to auscultation. Good air exchange. No wheezing or rhonchi. HEART: S1, S2 regular. ABDOMEN: Soft and nontender.[] EXTREMITIES: No clubbing or cyanosis. ROLLOFF DRIVER: Awake, alert, and oriented x3. No focal deficit. Impressions: 1. Obstructive sleep apnea-hypopnea syndrome. Patient demonstrated great com pliance with treatment, benefiting from treatment. 2. Mild obesity BMI 34.3. 3. Hypertension. 4. Acid reflux. 5. Hyperlipidemia. 6. History of bradycardia episodes in the past. 7. Status post left knee replacement. 8. Status post neck surgery with replacement of 3 disks. Plan: 1. Continue using PAP equipment every night for the whole night. 2. To change air filter at least 1-2 times per month. 3. PAP unit should stay lower then position of the head. 4. Advised patient to remove all remaining water from humidifier canister daily and make it dry after each usage. Refill canister with fresh distilled water before each usage. 5. Sleep hygiene with regular time in bed for at least 8 hours. 6. Precautions related to driving. No driving if feel any sleepiness. 7. I will maintain prescription for PAP supplies including mask, tube, filters. 8. Watching weight. 9. Follow up visit in 6 months or earlier if patient has any problems. Thank you very much for allowing me to participate in the management of your patient. Rey Ricardo MD, PhD, FAASM. Diplomat of [employer], Sleep Medicine Board by [employer] Sewage Disposal Engineer of [facility] [place]
== END ==
LOC: 3 N SLEEP 10:36
PROVIDERS: ATTEND Internal Medicine
DX: G47.33 Obstructive sleep apnea (adult) (pediatric) (principal); E66.9 Obesity, unspecified; E78.5 Hyperlipidemia, unspecified; I10 Essential (primary) hypertension; K21.9 Gastro-esophageal reflux disease without esophagitis; Z68.34 Body mass index [BMI] 34.0-34.9, adult; Z79.899 Other long term (current) drug therapy; Z99.89 Dependence on other enabling machines and devices; Z87.891 Personal history of nicotine dependence
CPT/HCPCS: 99212

== ENCOUNTER → 2023-01-13 | Outpatient (CLI) | payer MEDICARE ==
--- NOTE | 2023-01-13 13:29 | XR ---
EXAMINATION TYPE: XR lumbosacral spine min 4V DATE OF EXAM: 01/13/2023 CLINICAL HISTORY: pain COMPARISON: 04/14/2016 TECHNIQUE: Frontal, lateral, and oblique images of the lumbar spine are obtained. FINDINGS: There are 5 lumbar type vertebral bodies identified. The lumbar spine shows satisfactory alignment without evidence of acute fracture or dislocation. Vertebral body heights are within normal limits. Severe degenerative narrowing at L5-S1. Mild to moderate degenerative narrowing at the remai darnell levels. Scattered ventral spondylosis. The overlying soft tissue appears unremarkable. IMPRESSION: No acute fracture or dislocation is seen in the lumbar spine.ICD 10 NO FRACTURE, INITIAL EVALUATION
== END | disposition home or self-care (01) ==
LOC: RADXRMAIN 13:08
PROVIDERS: ATTEND Family Medicine
DX: M54.41 Lumbago with sciatica, right side (principal)
CPT/HCPCS: 72110

== ENCOUNTER → 2023-02-11 | Outpatient (CLI) | payer MEDICARE ==
--- NOTE | 2023-02-11 12:44 | MR ---
EXAMINATION TYPE: MR lumbar spine wo con DATE OF EXAM: 02/11/2023 9:33 AM CLINICAL INDICATION:Female, 57 years old with history of M54.31 sciatica; , Low back pain that radiat es down right leg. COMPARISON: 05/16/2022 TECHNIQUE: Multi planar, multi sequence imaging was performed utilizing: T1-weighted, T2-weighted, a nd turbo inversion recovery imaging of the lumbar spine. IV Contrast: cc . (None if empty) FINDINGS: Alignment: The lumbar vertebral bodies have preserved heights and alignment. Cord: The conus medullaris and the distal spinal cord appear unremarkable with regards to their signa l intensity and morphology. Bones/Discs: Multilevel disc degeneration changes with osteophyte formation, disc space narrowing, Sc hmorl's nodes, and facet joint arthropathy. Mild adjoining endplate inversion recovery signal most pr onounced at L5-S1 and T11-T12. Low T1/T2 signal lesion in the L1 vertebrae which is indeterminate me asuring 8 mm. Multisequence 2 signal low T1 signal probable bone island in the T12 vertebrae. Interve rtebral disc signal is maintained. T12-L1: Disc bulge and facet joint arthropathy result in mild spinal canal and moderate to severe lef t and moderate right neural foraminal stenosis. L1-L2: Disc bulge and facet joint arthropathy result in mild spinal canal and moderate right and mode rate to severe left neural foraminal stenosis. L2-L3: Disc bulge and facet joint arthropathy result in mild to moderate spinal canal and moderate ri ght and moderate to severe left bilateral neural foraminal stenosis. L3-L4: Disc bulge and facet joint arthropathy result in moderate to severe spinal canal and moderate bilateral neural foraminal stenosis. L4-L5: Disc bulge and facet joint arthropathy result in mild spinal canal and moderate bilateral neur al foraminal stenosis. L5-S1: The disc is rounded posterior morphology without significant spinal canal stenosis. Facet join t arthropathy with moderate to severe bilateral bilateral neural foraminal stenosis. No significant spinal canal or neural foraminal stenosis in the remainder of the visualized levels. Other findings: None. IMPRESSION: 1. L3-L4 disc bulge with moderate to severe central canal stenosis and moderate bilateral neural for aminal stenosis. 2. Moderate disc degeneration with associated osteoarthritic changes with multilevel neural foramina l stenosis as described above worse at L5-S1 and left L1-L2 3. Indeterminate low T1/T2 signal lesion in the L1 vertebrae measuring 8 mm. Consider correlation wi th history of malignancy.
== END | disposition home or self-care (01) ==
LOC: RADMRIMAIN 08:34
PROVIDERS: ATTEND Family Medicine
DX: M48.061 Spinal stenosis, lumbar region without neurogenic claudication (principal); M51.16 Intervertebral disc disorders with radiculopathy, lumbar region; M47.26 Other spondylosis with radiculopathy, lumbar region; M99.73 Connective tissue and disc stenosis of intervertebral foramina of lumbar region
CPT/HCPCS: 72148

== ENCOUNTER → 2023-02-23 | Outpatient (CLI) | payer MEDICARE ==
--- NOTE | 2023-02-24 13:06 | NM ---
EXAMINATION TYPE: NM bone scan whole body DATE OF EXAM: 02/23/2023 COMPARISON: NONE CLINICAL INDICATION: Female, 57 years old with history of M89.9 DISORDER OF BONE, UNSPECIFIED; Delayed whole-body scanning was performed following the injection of 22.8 mCi Tc 99m MDP. Images acq uired 3 hours post injection. FINDINGS: Whole body imaging is performed. Photopenic defect of the patient's left hip prosthesis is again evid ent. There is some focal uptake within the superior right acetabulum compatible some degenerative dany nge. There is some focal uptake in the region of T7 vertebral body. Correlate for pain and injury. Uptake at the bilateral shoulders compatible with degenerative change. Uptake is within the proximal right foot and be degenerative in nature. No suspicious uptake identified. IMPRESSION: 1. Mild increased uptake in the region of the T7 vertebral region. Correlate for trauma. 2. Additional areas of joint space uptake can be compatible with degenerative changes.
== END | disposition home or self-care (01) ==
LOC: RADNMMAIN 09:59
PROVIDERS: ATTEND Family Medicine
DX: M89.9 Disorder of bone, unspecified (principal)
CPT/HCPCS: 78306; A9503

== ENCOUNTER → 2023-06-01 | Outpatient (CLI) | payer MEDICARE | END | disposition home or self-care (01) | LOC: LABPAT 09:34 | PROVIDERS: ATTEND Orthopaedic Surgery | DX: Z53.9 Procedure and treatment not carried out, unspecified reason (principal) ==

== ENCOUNTER 2023-06-03 21:13 | Observation (INO) | payer MEDICARE ==
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
[2023-06-03] MEDS: MECLIZINE 12.5 MG TAB PO STA (21:59)
[2023-06-03] MEDS: SODIUM CHLORIDE 0.9% 1,000 ML IV STA (21:59)
[2023-06-03 22:13] LABS: Basophils % (A) 0 %; Eosinophils # (A) 0.1 k/uL (0-0.7); Eosinophils % (A) 1 %; HGB 12.9 gm/dL (11.4-16.0); Lymphocytes # (A) 1.9 k/uL (1.0-4.8); Lymphocytes % (A) 19 %; MCH 33.3 pg (25.0-35.0); MCHC 34.7 g/dL (31.0-37.0); MCV 95.9 fL (80.0-100.0); Mean Platelet Volume 7.7; Monocytes # (A) 0.3 k/uL (0-1.0); Monocytes % (A) 3 %; Neutrophils # (A) 7.2 k/uL (1.3-7.7); Neutrophils % (A) 75 %; Platelet Count 259 k/uL (150-450); RBC 3.86 m/uL (3.80-5.40); RDW 12.1 % (11.5-15.5); WBC 9.6 k/uL (3.8-10.6)
--- NOTE | 2023-06-03 22:22 | XR ---
EXAMINATION TYPE: XR chest 2V DATE OF EXAM: 06/03/2023 COMPARISON: Prior chest x-ray February 17, 2018 HISTORY: Weakness. TECHNIQUE: Frontal and lateral views of the chest are obtained. FINDINGS: Somewhat low lung volumes. There is no suspicious new focal air space opacity, pleural eff usion, or pneumothorax seen. The cardiac silhouette size remains within normal limits. Anterior fusi on plate in the cervical spine is partially imaged. IMPRESSION: No acute cardiopulmonary process.
--- NOTE | 2023-06-03 22:24 | CT ---
EXAMINATION TYPE: CT brain wo con DATE OF EXAM: 06/03/2023 HISTORY: c/o dizziness. Weakness. CT DLP: 1056.4 mGycm. Automated Exposure Control for Dose Reduction was Utilized. TECHNIQUE: CT scan of the head is performed without contrast. COMPARISON: None. FINDINGS: There is no acute intracranial hemorrhage or midline shift identified. Ventricles and sul ci within normal limits in size for patient's age. Crain-white matter differentiation is maintained. P atchy soft tissue density consistent with cerumen is seen in the bilateral external auditory canals. The globes are intact and the visualized sinuses are clear. IMPRESSION: No acute intracranial hemorrhage or midline shift.
[2023-06-03 22:25] LABS: Partial Thromboplastin Time 27.4 sec (22.0-30.0); Prothrombin Time 11.1 sec (10.0-12.5)
[2023-06-03 22:26] LABS: ALT 28 U/L (4-34); African American GFR (CKD) >90 (>60 ml/min/1.73 sqM); Anion Gap 14 mmol/L; Blood Urea Nitrogen 22 mg/dL (7-17); Calcium 9.7 mg/dL (8.4-10.2); Carbon Dioxide 16 mmol/L (22-30); Chloride 108 mmol/L (98-107); Glucose 168 mg/dL (74-99); Non-African American GFR(CKD) >90 (>60 ml/min/1.73 sqM); Sodium 138 mmol/L (137-145)
[2023-06-03 22:27] LABS: AST 42 U/L (14-36); Albumin 4.6 g/dL (3.5-5.0); Alkaline Phosphatase 50 U/L (38-126); Magnesium 1.5 mg/dL (1.6-2.3); Potassium 3.9 mmol/L (3.5-5.1); Total Bilirubin 0.6 mg/dL (0.2-1.3); Total Protein 7.2 g/dL (6.3-8.2)
[2023-06-03 23:29] LABS: Appearance,Urine Clear (Clear); Bilirubin,Urine Negative (Negative); Blood,Urine Negative (Negative); Color,Urine Colorless; Glucose,Urine (UA) Negative (Negative); Ketones,Urine Negative (Negative); Leukocyte Esterase,Urine Negative (Negative); Nitrite,Urine Negative (Negative); Protein,Urine Negative (Negative); Specific Gravity,Urine 1.006 (1.001-1.035); Urobilinogen,Urine <2.0 mg/dL (<2.0)
[2023-06-03 23:35] LABS: African American GFR (CKD) >90 (>60 ml/min/1.73 sqM); Anion Gap 10 mmol/L; Blood Urea Nitrogen 21 mg/dL (7-17); Carbon Dioxide 18 mmol/L (22-30); Chloride 112 mmol/L (98-107); Glucose 115 mg/dL (74-99); Non-African American GFR(CKD) >90 (>60 ml/min/1.73 sqM); Potassium 3.2 mmol/L (3.5-5.1); Sodium 140 mmol/L (137-145)
[2023-06-04] MEDS: ONDANSETRON 4 MG/2 ML VIAL IVP STA (00:02)
--- NOTE | 2023-06-04 00:34 | CT ---
EXAMINATION TYPE: CT angio head neck DATE OF EXAM: 06/04/2023 HISTORY: Patient states that she was sitting on the cough and her ears felt full, got sweaty and dizz y. patient states that she also feels bloated and still feels dizzy. pt had CT brain @2210. Severe di zziness. COMPARISON: None. CT DLP: 499.7 mGycm. Automated Exposure Control for Dose Reduction was Utilized. TECHNIQUE: CTA scan of the head and neck is performed with IV Contrast, patient injected with 65 mL of Isovue 300, axial images are obtained, coronal and sagittal reformatted images are reviewed. 3D re constructed images are created on an independent workstation and reviewed. FINDINGS: Carotid/Vascular Structures: Moderate callus-like plaque and three-vessel origin without significant stenosis. Severe calcified plaque right carotid bulb making accurate evaluation suboptimal. Significa nt stenosis is likely present. Blooming artifact and technique makes accurate diagnosed suboptimal. N o significant plaque or stenosis left carotid bulb level. The external carotid arteries bilaterally. There is dominant left vertebral artery filling the basilar artery. Distal right vertebral artery is hypoplastic or stenotic. There is hypoplastic right P1 segment with filling of the right P2 segment d ue to patent right-sided posterior communicating artery. Other: There is dependent fluid in the left sphenoid sinus. Anterior fusion plate with artificial dis c material C4-C6 levels. Slight grade 1 anterolisthesis C3 on C4. Moderate disc space narrowing C3-C4 and C6-C7 levels. IMPRESSION: Severe calcified plaque right carotid bulb. Significant stenosis is likely present.. Furt her investigation with MRA of the neck or direct catheter angiogram can be performed to better evalua te and define. NASCET criteria was used in interpretation of this exam?
[2023-06-04] MEDS ORDERED: ONDANSETRON 4 MG/2 ML VIAL IVP PRN (00:41)
[2023-06-04] MEDS ORDERED: NALOXONE 0.4 MG/ML 1 ML VIAL IV PRN (00:41)
[2023-06-04] MEDS ORDERED: MECLIZINE 25 MG TAB PO PRN (00:43)
[2023-06-04] MEDS: ASPIRIN 325 MG TAB PO STA (01:06)
[2023-06-04] MEDS: SODIUM CHLORIDE 0.9% 1,000 ML IV SCH (01:08)
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
--- NOTE | 2023-06-04 11:13 | P.DS ---
Providers Date of admission: 06/04/23 00:43 Attending physician: Madelyn Avina Primary care physician: Iron Garrido [facility] Course: Patient is a pleasant 57-year-old female came in with complaints of dizziness which is no spinning as well as lightheadedness. Patient denies any fever chills nausea vomiting. Patient does have fullness in the ears patient is found to have earwax in both ears. Patient's symptoms completely resolved at this time patient received IV fluid hydration patient was also dehydrated with elevated lactic acid which improved at this time with IV hydration patient is on hydrochlorothiazide along with lisinopril may have contributed to her dehydration. Patient's vertigo completely resolved CT of the head did not show any stroke patient does not have any other focal weakness or ataxia or any other cerebellar signs or symptoms patient denies any hearing problems or ringing in the ears. Patient's symptoms are started yesterday worse with head movement which resolved at this time. Patient had a CT angio of the head and neck which showed severe atherosclerotic plaque in the right carotid patient takes 40 mg of statin has not been taking aspirin because she has a scheduled surgery early June. PHYSICAL EXAMINATION: GENERAL: The patient is alert and oriented x3, not in any acute distress. Well developed, well nourished. HEENT: Pupils are round and equally reacting to light. EOMI. No scleral icterus. No conjunctival pallor. Normocephalic, atraumatic. No pharyngeal erythema. No thyromegaly. CARDIOVASCULAR: S1 and S2 present. No murmurs, rubs, or gallops. PULMONARY: Chest is clear to auscultation, no wheezing or crackles. ABDOMEN: Soft, nontender, nondistended, normoactive bowel sounds. No palpable organomegaly. MUSCULOSKELETAL: No joint swelling or deformity. EXTREMITIES: No cyanosis, clubbing, or pedal edema. NEUROLOGICAL: Gross neurological examination did not reveal any focal deficits. SKIN: No rashes. Assessment and plan -Vertigo appears to be peripheral and secondary to labyrinthitis, improved symptoms no further intervention at this time patient also has earwax for which I ordered Debrox. Patient will benefit from ENT evaluation. Lightheadedness: Secondary to dehydration. Patient received IV fluids with improvement in dehydration and lactic acidosis patient does not have any evidence of infection. Patient is on hydrochlorothiazide for blood pressure which I am resuming but if patient continues to have the symptoms consider discontinuation of hydrochlorothiazide patient is also hypokalemic potassium was replaced patient will be given potassium supplementation and patient will continue her lisinopril repeat basic metabolic profile was ordered as an outpatient -Hypomagnesemia secondary to hydrochlorothiazide magnesium will be replaced -Atherosclerotic vascular disease in the right carotid patient will be referred to vascular surgery for further evaluation probably starting with a carotid Doppler, patient was asked to take aspirin after the hip surgery patient will continue her statin. -Gastroesophageal reflux disease -Hyperlipidemia -Hypertension Patient symptoms resolved will be discharged today Patient Condition at Discharge: Stable Plan - Discharge Summary New Discharge Prescriptions: New Potassium Chloride ER [K-Dur 10] 10 meq PO DAILY #30 tab No Action Lisinopril-Hctz 20-12.5 mg [Zestoretic 20-12.5] 1 tab PO QAM Omeprazole [PriLOSEC] 40 mg PO DAILY #14 cap Metoprolol Succinate (ER) [Toprol XL] 25 mg PO DAILY Atorvastatin [Lipitor] 40 mg PO DAILY Discharge Medication List Lisinopril-Hctz 20-12.5 mg [Zestoretic 20-12.5] 1 tab PO QAM 11/21/13 [History] Atorvastatin [Lipitor] 40 mg PO DAILY 10/26/20 [History] Metoprolol Succinate (ER) [Toprol XL] 25 mg PO DAILY 10/26/20 [History] Omeprazole [PriLOSEC] 40 mg PO DAILY #14 cap 10/28/20 [Rx] Potassium Chloride ER [K-Dur 10] 10 meq PO DAILY #30 tab 06/04/23 [Rx] Follow up Appointment(s)/Referral(s): Iron Garrido MD [Primary Care Provider] - 3 Days Pushpa Escobar DO [STAFF PHYSICIAN] - 1 Week Ambulatory/Diagnostic Orders: Basic Metabolic Panel [LAB.AMB] Time Frame: 3 Days, Location: None Selected Magnesium [LAB.AMB] Time Frame: 3 Days, Location: None Selected Discharge Disposition: HOME SELF-CARE
[2023-06-04] MEDS: POTASSIUM CHLORIDE ER 20 MEQ TAB.ER PO STA (12:05)
[2023-06-04] MEDS: CARBAMIDE PEROXIDE 6.5% DROPS 15 ML BTL BOTH EARS STA (12:05)
[2023-06-04] MEDS: MAGNESIUM SULFATE-D5W PMX 1 GM in DEXTROSE/WATER 1 100ML.BAG IVPB SCH (12:11)
[2023-06-04] MEDS: ACETAMINOPHEN TAB 325 MG TAB PO PRN (14:50)
[2023-06-04 15:12] VITALS: BP 137/71; PULSE 66; RESP 18; TEMP 97.7
== END 2023-06-04 16:25 | disposition home or self-care (01) ==
LOC: EC 21:13 → 6NMEDSUR 06-04 00:43
PROVIDERS: ADMIT Internal Medicine; ATTEND Internal Medicine
DX: R42 Dizziness and giddiness (principal); E86.0 Dehydration; E83.42 Hypomagnesemia; T50.2X5A Adverse effect of carbonic-anhydrase inhibitors, benzothiadiazides and other diuretics, initial encounter; I65.21 Occlusion and stenosis of right carotid artery; K21.9 Gastro-esophageal reflux disease without esophagitis; E78.5 Hyperlipidemia, unspecified; I10 Essential (primary) hypertension; Z87.891 Personal history of nicotine dependence; Z79.899 Other long term (current) drug therapy
CPT/HCPCS: 96365; 96366; 96361; 96375; 99285; 36415; 93005; 80053; 80048; 83605 ×2; 83735; 84484; 85025; 85610; 85730; 81003; 71046; 70496; 70450; 70498; G0378; J2405; J3475; Q9967

== ENCOUNTER → 2023-06-03 | Outpatient (CLI) | payer MEDICARE ==
[2023-06-03 11:35] LABS: Prothrombin Time 10.6 sec (10.0-12.5)
[2023-06-03 21:57] LABS: HCT 40.8 % (37.2-46.3); HGB 13.5 g/dL (12.0-15.0); MCH 31.5 pg (27.0-32.0); MCHC 33.1 g/dL (32.0-37.0); MCV 95.3 FL (80.0-97.0); Mean Platelet Volume 10.6 FL (9.5-12.2); NRBC Per 100 WBC 0 X 10*3/uL (0.00-0.01); Platelet Count 301 X 10*3/uL (140-440); RBC 4.28 X 10*6/uL (4.10-5.20); RDW 12.1 % (11.5-14.5); WBC 5.03 X 10*3/uL (4.50-10.00)
[2023-06-03 22:06] LABS: ALT 28 U/L (8-44); AST 27 U/L (13-35); Albumin 4.8 g/dL (3.8-4.9); Albumin/Globulin Ratio 2.09 Ratio (1.60-3.17); Alkaline Phosphatase 70 U/L (41-126); BUN/Creat Ratio 27.33 Ratio (12.00-20.00); Blood Urea Nitrogen 16.4 mg/dL (9.0-27.0); Calcium 10.3 mg/dL (8.7-10.3); Carbon Dioxide 24.2 mmol/L (21.6-31.8); Chloride 101 mmol/L (96-109); Globulin 2.3 g/dL (1.6-3.3); Glucose 94 mg/dL (70-110); Potassium 3.8 mmol/L (3.5-5.5); Sodium 140 mmol/L (135-145); Total Bilirubin 0.4 mg/dL (0.3-1.2); Total Protein 7.1 g/dL (6.2-8.2)
== END | disposition home or self-care (01) ==
LOC: LABPAT 09:51
PROVIDERS: ATTEND Orthopaedic Surgery
DX: Z01.812 Encounter for preprocedural laboratory examination (principal); Z22.322 Carrier or suspected carrier of Methicillin resistant Staphylococcus aureus; M16.11 Unilateral primary osteoarthritis, right hip; R00.1 Bradycardia, unspecified; R94.31 Abnormal electrocardiogram [ECG] [EKG]
CPT/HCPCS: 80053; 85027; 85610; 85730; 86850; 86900; 86901; 87070; 93005

== ENCOUNTER → 2023-07-04 | Outpatient (CLI) | payer MEDICARE ==
--- NOTE | 2023-07-11 18:50 | CT ---
EXAMINATION TYPE: CT angio neck DATE OF EXAM: 07/04/2023 8:44 AM CLINICAL INDICATION:Female, 57 years old with history of I65.29 OCCULSION STENOSIS CAROTID; carotid o cclusion COMPARISON: CTA head and neck 06/04/2023 TECHNIQUE: Axially acquired helical CT Angiogram of the Neck was obtained with and without contrast u tilizing 75 mL of Isovue-370 administered intravenously. Axial images are supplemented with coronal a nd sagittal MIP reconstructions. 3D reconstructions were also performed and were post-processed at an independent workstation. Estimated carotid stenosis was calculated using the NASCET criteria. CT DLP: 333.3 mGycm, Automated exposure control for dose reduction was used. Contrast used:65 mL of Isovue 370 with IV Contrast, Oral contrast used: None. FINDINGS: CTA NECK: Aortic arch is patent. Mild to moderate atherosclerotic calcific disease along the arch involving the origins of the great vessels with under 50% stenosis of each branch vessel. On the right, the common carotid is patent. Bifurcation is patent. Heavy calcification of the bifurca tion and proximal right ICA with the ICA lumen reduced up to 1.5 mm, compared to a more distal normal ICA diameter 5.5 mm, corresponding to an estimated 67% stenosis. Proximal ECA is moderately narrowed . On the left, the common carotid is patent. Bifurcation is patent, with minimal disease noted and no a ppreciable significant stenosis of the ICA or ECA. Origins of the vertebral arteries show mild stenosis on the right proximally, no significant stenosis on the left proximally. Proximal left vertebral is tortuous. Vertebral arteries are patent throughou t the neck. The left is dominant. Intracranially, the right vertebral essentially terminates as the P ICA, with the basilar artery supplied by the left vertebral. Proximal V4 segment of the left vertebra l shows a small calcification without significant stenosis. The visualized basilar artery is patent. Left [employer]ER is patent and applied from the basilar. The visualized anterior circulation arteries appear patent. Some calcifications of the carotid siphons without significant stenosis seen. There is a feta l origin of the right [employer]ER, supplied by a patent right posterior communicating artery. Other: Visualized dural venous sinuses are patent. Mild frothy secretions in left sphenoid sinus. No soft tissue abnormality is seen in the neck. Included lung apices are clear. No acute osseous abnorma lity is seen. There are degenerative changes and ACDF changes C4-C5-C6. Mild anterolisthesis C3 on C4 appears degenerative. IMPRESSION: * Heavily calcified plaque at the distal right CCA and proximal ICA, with estimated 67% diameter miguel nosis of the proximal right ICA.
== END | disposition home or self-care (01) ==
LOC: RADCTMAIN 08:05
PROVIDERS: ATTEND Surgery
DX: I65.21 Occlusion and stenosis of right carotid artery (principal)
CPT/HCPCS: 70498; Q9967

== ENCOUNTER 2023-08-17 05:34 | Inpatient (IN) | payer MEDICARE ==
[2023-08-14 09:48] VITALS: BMI 33.6
[2023-08-17] MEDS: LACTATED RINGERS 1,000 ML IV SCH (06:23)
[2023-08-17] MEDS: MIDAZOLAM 2 MG/2 ML VIAL IVP ONE (06:49)
[2023-08-17] MEDS ORDERED: HYDROmorphone 0.5 MG/0.5 ML SYRINGE IVP PRN (07:00)
[2023-08-17 07:15] LABS: Basophils % (A) 1 %; Eosinophils # (A) 0.1 k/uL (0-0.7); Eosinophils % (A) 2 %; HCT 38.2 % (34.0-46.0); HGB 12.7 gm/dL (11.4-16.0); Lymphocytes % (A) 37 %; MCH 31.5 pg (25.0-35.0); MCHC 33.2 g/dL (31.0-37.0); MCV 94.8 fL (80.0-100.0); Mean Platelet Volume 7.8; Monocytes # (A) 0.3 k/uL (0-1.0); Monocytes % (A) 6 %; Neutrophils # (A) 2.8 k/uL (1.3-7.7); Neutrophils % (A) 52 %; Platelet Count 279 k/uL (150-450); RBC 4.03 m/uL (3.80-5.40); RDW 12.5 % (11.5-15.5); WBC 5.4 k/uL (3.8-10.6)
[2023-08-17 07:20] LABS: Glucose,Whole Blood 102 mg/dL (70-110)
[2023-08-17] MEDS: IV FLUID CONTINUATION 1,000 ML IV ONE (07:20)
[2023-08-17] MEDS ORDERED: NEOSTIGMINE 1 MG/ML 10 ML VIAL ONE (07:23)
[2023-08-17] MEDS ORDERED: LIDOCAINE 1% INJ 10MG/ML (20 ML MDV) ONE (07:23)
[2023-08-17] MEDS ORDERED: PROTAMINE SULFATE 10 MG/ML 5 ML VIAL ONE (07:23)
[2023-08-17] MEDS ORDERED: ROCURONIUM 10 MG/ML (5 ML VIAL) IV ONE (07:23)
[2023-08-17] MEDS ORDERED: GLYCOPYRROLATE 0.2 MG/ML 2 ML VIAL ONE (07:23)
[2023-08-17] MEDS ORDERED: fentaNYL (PF) 50 MCG/ML 2 ML AMP ONE (07:23)
[2023-08-17] MEDS ORDERED: PHENYLEPHRINE-0.9% NACL SYG 1,000 MCG/10 ML SYRINGE ONE (07:23)
[2023-08-17] MEDS ORDERED: PROPOFOL 10 MG/ML 20 ML VIAL IV ONE (07:23)
[2023-08-17] MEDS ORDERED: SUCCINYLCHOLINE CHLORIDE 200 MG/10 ML VIAL IV ONE (07:23)
[2023-08-17] MEDS ORDERED: HEPARIN SODIUM,PORCINE 10,000 UNIT/ML 1 ML VIAL ONE (07:23)
[2023-08-17 07:28] LABS: ALT 29 U/L (4-34); AST 33 U/L (14-36); African American GFR (CKD) >90 (>60 ml/min/1.73 sqM); Albumin 4.5 g/dL (3.5-5.0); Alkaline Phosphatase 62 U/L (38-126); Anion Gap 10 mmol/L; Blood Urea Nitrogen 17 mg/dL (7-17); Calcium 9.5 mg/dL (8.4-10.2); Carbon Dioxide 20 mmol/L (22-30); Chloride 109 mmol/L (98-107); Glucose 101 mg/dL (74-99); Non-African American GFR(CKD) >90 (>60 ml/min/1.73 sqM); Potassium 3.5 mmol/L (3.5-5.1); Sodium 139 mmol/L (137-145); Total Bilirubin 0.5 mg/dL (0.2-1.3); Total Protein 7.1 g/dL (6.3-8.2)
[2023-08-17] MEDS: LIDOCAINE 1% INJ 10MG/ML (20 ML MDV) SQ ONE (08:16)
[2023-08-17] MEDS: THROMBIN (BOVINE) 5,000 UNIT VIAL MISCELLANE ONE (08:16)
[2023-08-17] MEDS: ceFAZolin 2 GM in SODIUM CHLORIDE 0.9% 500 ML 500 ML IRRIGATION ONE (09:16)
[2023-08-17] MEDS: HEPARIN SODIUM (1,000 UNIT/ML) 2,000 UNIT in SODIUM CHLORIDE 0.9% 1,000 ML IRRIGATION ONE (09:17)
[2023-08-17] MEDS ORDERED: ACETAMINOPHEN TAB 325 MG TAB PO PRN (09:46)
[2023-08-17] MEDS ORDERED: MAG HYDROX/AL HYDROX/SIMETH 30 ML CUP PO PRN (09:46)
[2023-08-17] MEDS ORDERED: BENZOCAINE/MENTHOL LOZENG 1 EACH LOZENGE MUCOUS MEM PRN (09:46)
--- NOTE | 2023-08-17 09:46 | P.OP ---
Date of Procedure: 08/17/23 Description of Procedure: Preoperative Diagnosis: Right internal carotid artery stenosis Postoperative Diagnosis: Same Procedure: Right carotid endarterectomy with patch angioplasty Anesthesia: GET Surgeon: Pushpa Escobar DO Estimated Blood Loss (ml): 50 cc IV Fluids: See records Urine Output: See records Specimen: Right cervical lymph node, right carotid plaque Condition: stable Disposition: PACU Findings and indications: Patient is a 58-year-old female who underwent workup and evaluation for a bruit and was found to have high-grade right internal carotid artery stenosis greater than 70%, and likely even higher given ultrasound velocities and ratios. Due to this she was offered a carotid endarte rectomy and patch angioplasty. At the time of the procedure there was significant calcific disease at the bulb with severe narrowing at the origin of the internal carotid artery. Procedure in detail: After written informed consent was obtained the patient risks benefits and competitions were described the patient is brought to the operative suite and laid in a supine position. The area of the neck was prepped and draped in usual sterile fashion after appropriate anesthetic was performed per the anesthesiologist. A timeout was performed in normal fashion antibiotics were administered prior to incision. An oblique incision was then created just anterior to the sternocleidomastoid musculature with a 10 blade scalpel and dissection was carried down to the carotid sheath. The carotid sheath was then entered after facial vein was located and suture ligated in normal fashion. The common carotid, internal carotid, external carotid and superior thyroid arteries were located and dissected free in a meticulous fashion circumferentially and controlled with vessel loops. Attention was then placed to locating the vagus nerve as well as hypoglossal nerve which were both spared. Once controlled, patient was administered heparin and followed with ACTs for appropriate heparinization. Once ACT was appropriate, the proximal and distal aspects of the dissection were then controlled with vascular clamps. Cerebral oximetry was utilized for monitoring. There was no significant fluctuation with clamping therefore the decision not to shunt. Arteriotomy was then created with 11 blade scalpel and extended with Valdez Benitez scissors. An endarterectomy was then performed with a [place] elevator. The plaque was transected proximally and then feathered at the distal aspect of the internal carotid artery and removed. The area was copiously irrigated with heparinized saline and all free debris was removed. The distal flap was tacked down with 7-0 interrupted sutures A 0.8 x 8 cm bovine pericardial patch was then chosen and patch angioplasty was performed with 6-0 Prolene suture in a running fashion. Prior to last sutures being placed the inflow was released flushing any free debris out of the patch. This was reclamped and the internal carotid artery was released revealing good brisk flow and was once again reclamped. The external carotid and superior thyroid artery were then released followed by the common carotid artery to allow any free debris to be flushed into the external system. Final sutures were placed and secured. Internal carotid artery control was then released. Good pulsatile flow was noted through the patch and a Doppler was utilized demonstrating good brisk flow into the internal, external carotid arteries without any signs of obstruction. Hemostasis was then assured with interrupted sutures of 6-0 Prolene as well as thrombin and Gelfoam. A 10-Indonesian LENNY drain was then placed in normal fashion and secured with 3-0 nylon suture. The incision was then closed in a multilayer fashion after hemostasis was assured. The skin was then cleansed and dressings were placed. Patient tolerated the procedure well and was following commands and moving all extremities. Patient was then sent to PACU for recovery.
[2023-08-17] MEDS: DEXAMETHASONE SOD PHOSPHATE 4 MG/ML 1 ML VIAL IV ONE (13:23)
[2023-08-17] MEDS: ONDANSETRON 4 MG/2 ML VIAL IVP ONE (13:23)
[2023-08-17] MEDS ORDERED: Potassium Replacement Protocol 1 EACH MISC MISCELLANE PRN (13:47)
[2023-08-17] MEDS: POTASSIUM CHLORIDE ER 20 MEQ TAB.ER PO SCH (15:46)
[2023-08-17] MEDS ORDERED: PANTOPRAZOLE 40 MG TABLET PO SCH (17:00)
[2023-08-17] MEDS: PANTOPRAZOLE 40 MG TABLET PO SCH (17:16)
--- NOTE | 2023-08-17 18:10 | P.ANPRN ---
Procedure Note - Anesthesia - Invasive Line Left Arterial Line Time Out Performed: Yes ([id number]) Date of Procedure: 08/17/23 Time of Procedure: 06:55 Location of Patient: PreOp Preparation: Sterile Prep, Sterile Dressing Arterial Line Location: Radial (20G - 5 cm Arrow catheter) Ultrasound Used: Yes Purpose - Visualization and Identification of Vasculature: Yes Image Stored and Saved: Yes Narrative: Invasive line placement per sterile protocol utilized.
[2023-08-18] MEDS ORDERED: PANTOPRAZOLE 40 MG TABLET PO SCH (07:30)
[2023-08-18] MEDS: ATORVASTATIN 80 MG TAB PO SCH (08:10)
[2023-08-18] MEDS: EZETIMIBE 10 MG TAB PO SCH (08:11)
[2023-08-18] MEDS: CLOPIDOGREL 75 MG TAB PO SCH (08:11)
[2023-08-18] MEDS: METOPROLOL SUCCINATE (ER) 25 MG TAB.ER.24H PO SCH (08:11)
[2023-08-18] MEDS: ASPIRIN 81 MG PO SCH (08:11)
[2023-08-18 08:22] VITALS: TEMP 98
--- NOTE | 2023-08-18 10:18 | P.DS ---
Providers Date of admission: 08/17/23 05:34 Expected date of discharge: 08/18/23 Attending physician: Pushpa Escobar DO Consults: 08/17/23 09:46 Consult Physician Routine Consulting Provider: Ludivina Vasquez Consult Reason/Comments: med mgmnt Do you want consulting provider notified?: Yes Primary care physician: Iron Garrido [facility] Course: 58-year-old female who underwent workup and was found to have high-grade right internal carotid artery stenosis greater than 70%. Patient elected to have carotid endarterectomy. She is postop day #1 for right carotid endarterectomy with patch angioplasty. Patient states she is doing well. She denies any focal deficits. She has been up and out of bed and ambulating. Escobar catheter has been discontinued and she has voided. Arterial line was discontinued. She is tolerating her regular diet. She denies any pain, some tenderness to the right neck at the surgical incision. LENNY drain with approximately total of 35 mL of serosanguineous output. Vital signs have been stable. Patient has been afebrile. Blood pressure 132/71, heart rate 56, oxygen saturation 96% on room air and temperature 98.0 F. She is started on Plavix today, and will resume previous home medications. Exam General appearance: The patient is alert, oriented, appears in no acute distress. HET: Head is normocephalic and atraumatic. Pupils are equal and reactive. Neck: Supple. Right side of neck with a surgical incision well-approximated, LENNY drain with serosanguineous drainage. Heart: Regular. Lungs: Equal expansion, normal respiratory effort. Abdomen: Soft, nondistended. Extremities: Normal skin color and turgor. Neurological: No focal deficits. Strength and sensation are grossly intact. Assessment 1. Post op day #1 for carotid endarterectomy with patch angioplasty 2. High-grade right internal carotid artery stenosis greater than 70% 3. Hypertension 4. Obstructive sleep apnea with CPAP use 5. Hyperlipidemia Plan Patient has been up and ambulating. Escobar catheter discontinued. LENNY drain discontinued. Discharge instructions reviewed with patient. Plavix 75 mg daily has been added. Risk of bleeding and bruising discussed with use of Plavix. Will continue rest of home medications. Patient to follow-up with vascular surgery in 2 weeks. Patient is cleared for discharge. The impression and plan of care has been dictated as directed. Dr. Escobar I performed a history and examination of this patient, discussed the same with the dictator. I agree with the dictator's note ,documented as a scribe. Any additional findings or plans will be noted. Procedures: Right carotid endarterectomy with patch angioplasty Patient Condition at Discharge: Stable Plan - Discharge Summary Discharge Rx Participant: Yes New Discharge Prescriptions: New Clopidogrel [Plavix] 75 mg PO DAILY #30 tab Continue Lisinopril-Hctz 20-12.5 mg [Zestoretic 20-12.5] 1 tab PO QAM Omeprazole [PriLOSEC] 40 mg PO AC-LUNCH Acetaminophen Tab [Tylenol] 500 - 1,000 mg PO Q4-6H PRN PRN Reason: Pain Ezetimibe [Zetia] 10 mg PO QAM Aspirin [Adult Low Dose Aspirin EC] 81 mg PO DAILY Metoprolol Succinate (ER) [Toprol XL] 12.5 mg PO QAM Rosuvastatin [Crestor] 40 mg PO QAM Discharge Medication List Lisinopril-Hctz 20-12.5 mg [Zestoretic 20-12.5] 1 tab PO QAM 11/21/13 [History] Metoprolol Succinate (ER) [Toprol XL] 12.5 mg PO QAM 10/26/20 [History] Rosuvastatin [Crestor] 40 mg PO QAM 06/04/23 [History] Acetaminophen Tab [Tylenol] 500 - 1,000 mg PO Q4-6H PRN 06/06/23 [History] Omeprazole [PriLOSEC] 40 mg PO AC-LUNCH 06/06/23 [History] Aspirin [Adult Low Dose Aspirin EC] 81 mg PO DAILY 08/14/23 [History] Ezetimibe [Zetia] 10 mg PO QAM 08/14/23 [History] Clopidogrel [Plavix] 75 mg PO DAILY #30 tab 08/17/23 [Rx] Follow up Appointment(s)/Referral(s): Iron Garrido MD [Primary Care Provider] - As Needed Pushpa Escobar DO [STAFF PHYSICIAN] - 2 Weeks Patient Instructions/Handouts: Clopidogrel (By mouth), Carotid Endarterectomy (DC) Activity/Diet/Wound Care/Special Instructions: No strenuous activity or heavy lifting greater than 10 pounds. May shower tomorrow but no tub bathing or soaking. Watch incision site for infection including redness, drainage, or temperature greater than 100.4. If you notice he symptoms please call office Discharge Disposition: HOME SELF-CARE
[2023-08-18 11:29] VITALS: BP 70/40; PULSE 84; RESP 18
--- NOTE | 2023-08-18 20:41 | CONS ---
CONSULTATION REASON FOR CONSULTATION: Advice regarding hypertension, hyperlipidemia, other medical issues requested by Dr. Escobar. HISTORY OF PRESENT ILLNESS: This is a 58-year-old woman with a past medical history of multiple medical problems including hypertension, hyperlipidemia, underwent right carotid endarterectomy by Dr. Escobar. There is no history of any fever, rigors, or chills. No chest pain, no palpitation, cyanosis, hematochezia, or melena at this time. PAST MEDICAL HISTORY: Reviewed include hypertension, hyperlipidemia, rest of the history and rest of the chart is also reviewed. HOME MEDICATIONS: Reviewed include Prilosec, doses and rest of medications noted. ALLERGIES: None. FAMILY HISTORY: History of lung cancer in the family. SOCIAL HISTORY: Occasional alcohol, previous smoking THC. REVIEW OF SYSTEMS: A 14-point review is negative except as mentioned earlier. PHYSICAL EXAMINATION: VITAL SIGNS: Pulse is 56, blood pressure 132/70, respirations 15. HEENT: Conjunctivae normal. NECK: No jugular venous distention. Status post right carotid endarterectomy. CARDIOVASCULAR: S1, S2. RESPIRATIONS: Diminished at the bases. ABDOMEN: Soft, nontender. LEGS: No edema, no swelling. NERVOUS SYSTEM: Nonfocal. SKIN: No ulcer, rash, bleeding. JOINTS: No active arthropathy. LABORATORY DATA: Reviewed. ASSESSMENT: 1. Status post right carotid endarterectomy. 2. Hypertension. 3. Hyperlipidemia. 4. Degenerative joint disease. 5. History of sleep apnea. RECOMMENDATIONS AND DISCUSSION: This 58-year-old woman presented after surgery. At this time, the patient is medically stable. I would recommend to continue the home medications, DVT prophylaxis, and incentive spirometry, otherwise resume the home medications once the patient is discharged. Recommended to follow up with Dr. Garrido in the outpatient setting. MMODL / IJN: [id number] /
== END 2023-08-18 11:49 | disposition home or self-care (01) | DRG 39 ==
LOC: 2ORMAIN 05:34 → 3SCARD 12:31
PROVIDERS: ADMIT Surgery; ATTEND Surgery
PROC: 03UK0KZ Supplement Right Internal Carotid Artery with Nonautologous Tissue Substitute, Open Approach (ICD-10-PCS; principal; 2023-08-17 07:30)
PROC: 03CK0ZZ Extirpation of Matter from Right Internal Carotid Artery, Open Approach (ICD-10-PCS; principal; 2023-08-17 07:30)
DX: I65.21 Occlusion and stenosis of right carotid artery (principal); I49.5 Sick sinus syndrome; I10 Essential (primary) hypertension; J44.9 Chronic obstructive pulmonary disease, unspecified; E66.9 Obesity, unspecified; Z68.33 Body mass index [BMI] 33.0-33.9, adult; E78.5 Hyperlipidemia, unspecified; K21.9 Gastro-esophageal reflux disease without esophagitis; G47.33 Obstructive sleep apnea (adult) (pediatric); M51.36 Other intervertebral disc degeneration, lumbar region; M16.11 Unilateral primary osteoarthritis, right hip; M48.00 Spinal stenosis, site unspecified; M19.079 Primary osteoarthritis, unspecified ankle and foot; R73.03 Prediabetes; Z79.82 Long term (current) use of aspirin; Z79.899 Other long term (current) drug therapy; Z87.891 Personal history of nicotine dependence; Z96.642 Presence of left artificial hip joint; Z86.16 Personal history of COVID-19
CPT/HCPCS: 80053; 85025; 86850; 86900; 86901; 88304; 88305; 88311; 88341; 88342

== ENCOUNTER → 2023-09-12 | Outpatient (CLI) | payer MEDICARE ==
--- NOTE | 2023-09-12 21:11 | MM ---
Reason for Exam: Screening (asymptomatic). Last screening mammogram was performed 12 month(s) ago. Patient History: Menarche at age 12. First Full-Term at age 17. Postmenopausal. Hormonal Contraceptives for 3 years from age 17 until age 20. Risk Values: Rosetta 5 year model risk: 1.0%. NCI Lifetime model risk: 5.5%. Prior Study Comparison: 12/01/2020 Right Diagnostic Mammogram, [facility]. 06/21/2021 Bilateral Screening Mammogram, [facility]. 09/08/2022 Bilateral MG 3D screening mammo w/cad, [facility]. Tissue Density: There are scattered areas of fibroglandular density. Findings: Analyzed By CAD. There is no suspicious group of microcalcifications or new suspicious mass in either breast. Overall Assessment: Negative, BI-RAD 1 Management: Screening Mammogram of both breasts in 1 year. . Patient should continue monthly self-breast exams. A clinical breast exam by your physician is recommended on an annual basis. This exam should not preclude additional follow-up of suspicious palpable abnormalities. Note on Rosetta scores and lifetime risk: 1. A Rosetta score greater than 3% is considered moderate risk. If this is the case, consider specialist referral to assess eligibility for a risk reducing agent. 2. If overall lifetime risk for the development of breast cancer is 20% or higher, the patient may qualify for future screening with alternating mammogram and breast MRI. Electronically signed and approved by: Sara Bonilla M.D. Radiologist
== END | disposition home or self-care (01) ==
LOC: RADMAMWWP 07:19
PROVIDERS: ATTEND Family Medicine
DX: Z12.31 Encounter for screening mammogram for malignant neoplasm of breast (principal); Z78.0 Asymptomatic menopausal state
CPT/HCPCS: 77063; 77067

== ENCOUNTER → 2023-10-04 | Outpatient (CLI) | payer MEDICARE ==
[2023-10-04 15:51] VITALS: BP 164/75; PULSE 61; RESP 18; TEMP 97.9
--- NOTE | 2023-10-04 18:15 | P.PROGSL ---
Subjective DATE: 10/04/2023 FOLLOW UP VISIT. Patient with obstructive sleep apnea hypopnea syndrome return to sleep center for follow-up visit. Information from previous visit have been reviewed. Patient is using PAP equipment every night for the whole night, getting PAP supplies in time. The patient does not have significant problems with the mask, PAP unit and humidification. [place] sleepiness scale is 4, which is normal. I checked information from PAP unit. PAP unit pressure 5-10, average 8.9 cm H2O. Usage is 100% for more then 4 hours, average 8.4 hours per night. Leak is 2 l/m, which is in acceptable range. Apnea Hypopnea Index is 2.0, which is normal. MEDICATIONS: Please see below During physical exam: GENERAL: A pleasant patient without any distress. VITAL SIGNS: Please see below, weight 175 pounds, BMI 33.4. HEENT: PERRLA, EOMI.low position of soft palate, Mallapati 4. NECK: Supple. No JVD. LUNGS: Clear to percussion and to auscultation. Good air exchange. No wheezing or rhonchi. HEART: S1, S2 regular. ABDOMEN: Soft and nontender.[] EXTREMITIES: No clubbing or cyanosis. A[employer]ULTURAL [employer] CAMP MANAGER: Awake, alert, and oriented x3. No focal deficit. Impressions: 1. Obstructive sleep apnea-hypopnea syndrome. Patient demonstrated great compliance with treatment, benefiting from treatment. 2. Hypertension. 3. Mild obesity, BMI 33.4. 4. Acid reflux. 5. Hyperlipidemia. 6. History of bradycardia episodes. 7. Status post neck surgery for replacement of 3 discs. 8. Status post left knee replacement. Plan: 1. Continue using PAP equipment every night for the whole night. 2. To change air filter at least 1-2 times per month. 3. PAP unit should stay lower then position of the head. 4. Advised patient to remove all remaining water from humidifier canister daily and make it dry after each usage. Refill canister with fresh distilled water before each usage. 5. Sleep hygiene with regular time in bed for at least 8 hours. 6. Precautions related to driving. No driving if feel any sleepiness. 7. I will maintain prescription for PAP supplies including mask, tube, filters. 8. Follow up visit in 6 months or earlier if patient has any problems. 9. Watching weight. Thank you very much for allowing me to participate in the management of your patient. Rey Ricardo MD, PhD, FAASM. Diplomat of [place] [employer], Sleep Medicine Board by [place] [employer] T[employer] Fastener of [facility] [place] Objective - Vital Signs Vital Signs: Vital Signs Temp 97.9 F 10/04/23 15:50 Pulse 61 10/04/23 15:50 Resp 18 10/04/23 15:50 BP 164/75 10/04/23 15:50 Pulse Ox 98 10/04/23 15:50 FiO2 Intake & Output 10/03/23 10/04/23 10/04/23 18:59 06:59 18:59 Weight 79.605 kg Home Medications: Home Medications Medication Instructions Recorded Confirmed Type Lisinopril-Hctz 20-12.5 mg 1 tab PO QAM 11/21/13 10/04/23 History [Zestoretic 20-12.5] Metoprolol Succinate (ER) [Toprol 12.5 mg PO QAM 10/26/20 10/04/23 History XL] Rosuvastatin [Crestor] 40 mg PO QAM 06/04/23 10/04/23 History Acetaminophen Tab [Tylenol] 500 - 1,000 mg PO Q4-6H PRN 06/06/23 08/17/23 History Omeprazole [PriLOSEC] 40 mg PO AC-LUNCH 06/06/23 10/04/23 History Aspirin [Adult Low Dose Aspirin EC] 81 mg PO DAILY 08/14/23 10/04/23 History Ezetimibe [Zetia] 10 mg PO QAM 08/14/23 10/04/23 History Clopidogrel [Plavix] 75 mg PO DAILY #30 tab 08/17/23 10/04/23 Rx Ibuprofen [Motrin] 800 mg PO DAILY PRN 10/04/23 10/04/23 History
== END ==
LOC: 3 N SLEEP 15:29
PROVIDERS: ATTEND Internal Medicine
DX: G47.33 Obstructive sleep apnea (adult) (pediatric) (principal); I10 Essential (primary) hypertension; E66.9 Obesity, unspecified; K21.9 Gastro-esophageal reflux disease without esophagitis; E78.5 Hyperlipidemia, unspecified; Z96.652 Presence of left artificial knee joint; Z98.890 Other specified postprocedural states; Z86.79 Personal history of other diseases of the circulatory system; Z68.33 Body mass index [BMI] 33.0-33.9, adult; Z99.89 Dependence on other enabling machines and devices; Z79.899 Other long term (current) drug therapy; Z79.02 Long term (current) use of antithrombotics/antiplatelets; Z87.891 Personal history of nicotine dependence
CPT/HCPCS: 99212

== ENCOUNTER 2024-01-04 10:09 | Day surgery (SDC) | payer MEDICARE ==
[2024-01-03 10:21] VITALS: BMI 32.8
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
[2024-01-04 11:01] VITALS: TEMP 98.1
[2024-01-04] MEDS: IV FLUID CONTINUATION 1,000 ML IV ONE (11:09)
[2024-01-04] MEDS: LACTATED RINGERS 1,000 ML BAG IV STA (11:11)
[2024-01-04] MEDS ORDERED: PROPOFOL 10 MG/ML 20 ML VIAL IV ONE (11:55)
[2024-01-04] MEDS ORDERED: LIDOCAINE 1% INJ 10MG/ML (20 ML MDV) ONE (11:55)
--- NOTE | 2024-01-04 12:34 | P.PCN ---
Date of Procedure: 01/04/24 Description of Procedure: PREOPERATIVE DIAGNOSIS: Personal history of colon polyps Colonoscopy screening POSTOPERATIVE DIAGNOSIS: Tubular adenoma ascending colon Tubular adenoma transverse colon Internal hemorrhoids, grade 2 OPERATION: Colonoscopy to the ileocecal valve and appendiceal orifice, cecum Colonoscopy with hot snare polypectomy SURGEON: Valery Peres MD. ANESTHESIA: MAC. INDICATIONS: The patient is an 58-year-old female who presents personal history of colon polyps. Last colonoscopy 5 years. Benefits and risks were described and informed consent was obtained. DESCRIPTION OF PROCEDURE: The patient had undergone GoLytely prep. The patient had been brought into the operating room and laid in the left lateral decubitus position. After adequate intravenous sedation, the rectum was examined with 2% lidocaine jelly. External hemorrhoids were encountered. The rectal tone was within normal limits. No lesions were palpated in the rectal vault. An Olympus colonoscope was advanced until the cecum, ileocecal valve and appendiceal orifice were clearly viewed. The prep was good. No large sigmoid diverticulosis was encountered. Colonic polyps were found and removed. No evidence of focal colitis was found. Retroflexion of the scope demonstrated grade 2 internal hemorrhoids without active bleeding or inflammation. The colon was desufflated. The patient had tolerated the procedure well. Withdrawal time was over 6 minutes. FINDINGS: Aronchick preparation quality scale 2 (1-5) Internal hemorrhoids, grade 1 External hemorrhoids, grade 1. No arteriovenous malformations. No large sigmoid diverticulosis Removal of 2 polyps: - Snare polypectomy transverse colon, 5 mm tubulovillous adenoma - Snare polypectomy ascending colon, 4 mm flat villous adenoma No focal colitis. RECOMMENDATIONS: Repeat colonoscopy 3 years, 2026 Plan - Discharge Summary Discharge Rx Participant: No New Discharge Prescriptions: Continue Omeprazole [PriLOSEC] 40 mg PO AC-LUNCH Acetaminophen Tab [Tylenol] 500 - 1,000 mg PO Q4-6H PRN PRN Reason: Pain Ezetimibe [Zetia] 10 mg PO QAM Aspirin [Adult Low Dose Aspirin EC] 81 mg PO DAILY Lisinopril-Hctz 20-25 mg [Zestoretic 20-25] 1.5 tab PO DAILY Metoprolol Succinate (ER) [Toprol XL] 12.5 mg PO QAM Rosuvastatin [Crestor] 40 mg PO QAM Clopidogrel [Plavix] 75 mg PO DAILY #30 tab Ibuprofen [Motrin] 800 mg PO DAILY PRN PRN Reason: Pain Levocetirizine Dihydrochloride [Xyzal] 5 mg PO HS Discharge Medication List Metoprolol Succinate (ER) [Toprol XL] 12.5 mg PO QAM 10/26/20 [History] Rosuvastatin [Crestor] 40 mg PO QAM 06/04/23 [History] Acetaminophen Tab [Tylenol] 500 - 1,000 mg PO Q4-6H PRN 06/06/23 [History] Omeprazole [PriLOSEC] 40 mg PO AC-LUNCH 06/06/23 [History] Aspirin [Adult Low Dose Aspirin EC] 81 mg PO DAILY 08/14/23 [History] Ezetimibe [Zetia] 10 mg PO QAM 08/14/23 [History] Clopidogrel [Plavix] 75 mg PO DAILY #30 tab 08/17/23 [Rx] Ibuprofen [Motrin] 800 mg PO DAILY PRN 10/04/23 [History] Levocetirizine Dihydrochloride [Xyzal] 5 mg PO HS 01/03/24 [History] Lisinopril-Hctz 20-25 mg [Zestoretic 20-25] 1.5 tab PO DAILY 01/03/24 [History] Follow up Appointment(s)/Referral(s): Valery Peres MD [STAFF PHYSICIAN] - As Needed Patient Instructions/Handouts: Colorectal Polyps (GEN) Activity/Diet/Wound Care/Special Instructions: Repeat colonoscopy 3 years, 2026 Discharge Disposition: HOME SELF-CARE
[2024-01-04 13:04] VITALS: BP 143/64; PULSE 66; RESP 20
== END 2024-01-04 13:09 | disposition home or self-care (01) ==
LOC: ORWHC2ENDO 10:09
PROVIDERS: ATTEND Surgery Plastic and Reconstructive Surgery
DX: Z86.010 Personal history of colon polyps
CPT/HCPCS: 45385; 88305

== ENCOUNTER → 2024-02-12 | Outpatient (CLI) | payer MEDICARE ==
[2024-02-12 09:46] LABS: Partial Thromboplastin Time 24.1 sec (22.0-30.0); Prothrombin Time 10.9 sec (10.0-12.5)
[2024-02-12 11:02] LABS: ALT 27 U/L (4-34); AST 30 U/L (14-36); African American GFR (CKD) >90 (>60 ml/min/1.73 sqM); Albumin 4.9 g/dL (3.5-5.0); Albumin/Globulin Ratio 1.8; Alkaline Phosphatase 69 U/L (38-126); Anion Gap 12 mmol/L; Blood Urea Nitrogen 18 mg/dL (7-17); Calcium 9.8 mg/dL (8.4-10.2); Carbon Dioxide 22 mmol/L (22-30); Chloride 104 mmol/L (98-107); Globulin 2.7 g/dL; Glucose 101 mg/dL (74-99); Non-African American GFR(CKD) >90 (>60 ml/min/1.73 sqM); Potassium 3.6 mmol/L (3.5-5.1); Sodium 138 mmol/L (137-145); Total Bilirubin 0.4 mg/dL (0.2-1.3); Total Protein 7.6 g/dL (6.3-8.2)
[2024-02-12 14:48] LABS: HCT 39.7 % (37.2-46.3); HGB 13.3 g/dL (12.0-15.0); MCH 31.4 pg (27.0-32.0); MCHC 33.5 g/dL (32.0-37.0); MCV 93.9 FL (80.0-97.0); Mean Platelet Volume 10.6 FL (9.5-12.2); NRBC Per 100 WBC 0 X 10*3/uL (0.00-0.01); Platelet Count 352 X 10*3/uL (140-440); RBC 4.23 X 10*6/uL (4.10-5.20); RDW 13.2 % (11.5-14.5); WBC 6.31 X 10*3/uL (4.50-10.00)
== END | disposition home or self-care (01) ==
LOC: LABWHC1 08:12
PROVIDERS: ATTEND Orthopaedic Surgery
DX: Z01.818 Encounter for other preprocedural examination (principal); Z22.322 Carrier or suspected carrier of Methicillin resistant Staphylococcus aureus; M16.11 Unilateral primary osteoarthritis, right hip
CPT/HCPCS: 36415; 80053; 85027; 85610; 85730; 86850; 86900; 86901; 87070; 93005

== ENCOUNTER 2024-02-20 06:49 | Day surgery (SDC) | payer MEDICARE ==
[~2024-02-20 06:49] MED LIST changes: -DEXAMETHASONE SOD PHOSPHATE 4 MG/ML 1 ML VIAL IVP ONE; -HEPARIN SODIUM,PORCINE/PF 5,000 UNIT/0.5 ML SYRINGE SQ PRN; -HYDROcodone/APAP 5-325MG 1 EACH TAB ONE; -HYDROcodone/APAP 5-325MG 1 EACH TAB PO ONE; -HYDROmorphone (PF) 1 MG/ML ONE; -LACTATED RINGERS 1,000 ML IV ONE; -LIDOCAINE 2% INJ 20 MG/ML (2 ML VIAL) ONE; -MIDAZOLAM 2 MG/2 ML VIAL ONE; -ONDANSETRON 4 MG/2 ML VIAL IVP ONE; -ONDANSETRON 4 MG/2 ML VIAL ONE; -PROPOFOL 10 MG/ML 20 ML VIAL IV ONE; -Pre Op ABX Message 1 EACH MISC MISCELLANE ONE; +TRANEXAMIC 1,000 MG/100ML-NACL 1,000 MG in SALINE 1 100ML.BAG IVPB PRN; -ceFAZolin 1,000 MG VIAL IVPB ONE; -fentaNYL (PF) 50 MCG/ML 2 ML AMP ONE
[2024-02-20 07:33] LABS: Glucose,Whole Blood 103 mg/dL (70-110)
[2024-02-20] MEDS: IV FLUID CONTINUATION 1,000 ML IV ONE (07:38)
[2024-02-20] MEDS: GABAPENTIN 300 MG CAP PO PRN (07:45)
[2024-02-20] MEDS: LACTATED RINGERS 1,000 ML IV SCH (07:45)
[2024-02-20] MEDS: DEXAMETHASONE SOD PHOSPHATE 4 MG/ML 1 ML VIAL IV ONE (07:46)
[2024-02-20] MEDS: MELOXICAM 7.5 MG TAB PO PRN (07:46)
[2024-02-20] MEDS: ACETAMINOPHEN TAB 500 MG TAB PO PRN (07:46)
[2024-02-20] MEDS: ONDANSETRON 4 MG/2 ML VIAL IVP ONE (07:47)
[2024-02-20] MEDS: MIDAZOLAM 2 MG/2 ML VIAL IV PRN (07:59)
--- NOTE | 2024-02-20 08:14 | P.ANPRN ---
Procedure Note - Anesthesia - Nerve Block Performed Right Alberto Single Time Out Performed: Yes Date of Procedure: 02/20/24 Procedure Start Time: 07:58 Procedure Stop Time: 08:03 Location of Patient: PreOp Indication: Acute Post-Operative Pain, Analgesia, Requested by Surgeon Sedation Type: Sedate with meaningful contact maintained Preparation: Sterile Prep Position: Supine Catheter: None Needle Types: Pajunk Needle Gauge: 21 Ultrasound used to visualize needle placement: Yes Ultrasound used to observe medication spread: Yes Injectate: 0.5% Ropivacaine (see comment for volume) ([id number]) Blood Aspirated: No Pain Paresthesia on Injection Noted: No Resistance on Injection: Normal Image Stored and Saved: Yes Events: Uneventful and Well Tolerated
[2024-02-20] MEDS ORDERED: HYDROmorphone 0.5 MG/0.5 ML SYRINGE IVP PRN ×2 (08:49)
[2024-02-20] MEDS ORDERED: MAGNESIUM HYDROXIDE 2,400 MG/30 ML CUP PO PRN (08:49)
[2024-02-20] MEDS ORDERED: ONDANSETRON 4 MG/2 ML VIAL IVP PRN (08:49)
[2024-02-20] MEDS ORDERED: HYDROmorphone 1 MG/ML 1 ML SYRINGE IVP PRN (08:49)
[2024-02-20] MEDS ORDERED: NALOXONE 0.4 MG/ML 1 ML VIAL IV PRN (08:49)
[2024-02-20] MEDS ORDERED: HYDROcodone/APAP 7.5-325MG 1 EACH TAB PO PRN (08:52)
[2024-02-20] MEDS ORDERED: LIDOCAINE 1% INJ 10MG/ML (20 ML MDV) ONE (08:57)
[2024-02-20] MEDS ORDERED: PROPOFOL 10 MG/ML 20 ML VIAL IV ONE (08:57)
[2024-02-20] MEDS ORDERED: fentaNYL (PF) 50 MCG/ML 2 ML AMP ONE (08:57)
[2024-02-20] MEDS ORDERED: ROPIVACAINE 5 MG/ML 30 ML VIAL ONE (08:57)
[2024-02-20] MEDS ORDERED: HYDROmorphone (PF) 1 MG/ML ONE (08:57)
[2024-02-20] MEDS ORDERED: GLYCOPYRROLATE 0.2 MG/ML 2 ML VIAL ONE (08:57)
[2024-02-20] MEDS ORDERED: DEXAMETHASONE SOD PHOSPHATE 4 MG/ML 1 ML VIAL ONE (08:57)
[2024-02-20] MEDS ORDERED: TRANEXAMIC 1,000 MG/100ML-NACL PREMIX BAG ONE (08:57)
[2024-02-20] MEDS ORDERED: ePHEDrine 50 MG/ML 1 ML VIAL ONE (08:57)
[2024-02-20] MEDS ORDERED: MIDAZOLAM 2 MG/2 ML VIAL ONE (08:57)
[2024-02-20] MEDS ORDERED: PHENYLEPHRINE 10 MG/ML VIAL ONE (08:57)
[2024-02-20] MEDS ORDERED: NEOSTIGMINE 1 MG/ML 10 ML VIAL ONE (08:57)
[2024-02-20] MEDS ORDERED: ROCURONIUM 10 MG/ML (5 ML VIAL) IV ONE (08:57)
[2024-02-20] MEDS ORDERED: SUCCINYLCHOLINE CHLORIDE 200 MG/10 ML VIAL IV ONE (08:57)
[2024-02-20] MEDS: ceFAZolin 1,000 MG in SODIUM CHLORIDE 0.9% 1,000 ML IRRIGATION ONE (09:02)
[2024-02-20] MEDS: ROPIVACAINE 5 MG/ML 30 ML VIAL MISCELLANE ONE ×2 (09:30→10:07)
--- NOTE | 2024-02-20 10:13 | P.OP ---
Date of Procedure: 02/20/24 Preoperative Diagnosis: Severe osteoarthritis right hip Postoperative Diagnosis: Severe osteoarthritis right hip Procedure(s) Performed: Right total hip arthroplasty Implants: [employer] Polarstem standard size 1 with a collar [employer] R3, 3 hole hemispherical acetabular shell, 50 mm [employer] Reflection 6.5 mm cancellus screws, 20 mm 2 [employer] R3, XLPE 20 acetabular liner [employer] Oxinium femoral head 36 mm, +0 All components were press-fit. The articulation is Oxinium on polyethylene. Anesthesia: GETA Surgeon: Fan Argueta Welding Pantograph Operator #1: Veronica Marti Estimated Blood Loss (ml): 350 Pathology: none sent Condition: stable Disposition: PACU Indications for Procedure: After failure of conservative treatment we discussed the surgical and nonsurgical treatment options at length. Patient wishes to proceed with a total hip arthroplasty with a direct anterior approach. Complications specific to this procedure were discussed at length, including but not limited to infection, leg length discrepancy, dislocation, nerve injury, and fracture. Covid-19 was also discussed at length with the patient, and they are aware of the current policies and procedures. The patient was given the option of delaying surgery, but they elect to proceed knowing these risks. Patient is aware of all these complications and informed consent was obtained Operative Findings: The operative findings are consistent with severe osteoarthritis of the right hip Description of Procedure: The patient was seen and evaluated in the preoperative area and the consent was reviewed. The operative site was marked with a skin marker. The patient verified the procedure and operative site. A NEERAJ block was placed by anesthesia in the preoperative area. The patient was then brought to the operating room and given preoperative antibiotics intravenously. 1 g of Tranexamic acid was also given intravenously. A general anesthetic was administ ered by the anesthesia department. The patient was then placed on the [place] table with the bony prominences well-padded. The hip area was then prepped with a ChloraPrep solution and draped in the usual sterile fashion. A universal timeout was then performed, which confirmed the patient's name, surgical site, ALLERGIES, and procedure being performed on the consent. Next the incision site was located at 1 cm distal and 4 cm lateral to the anterior superior iliac spine. The skin and subcutaneous tissues were sharply incised. Incision was carefully dissected down to the fascia overlying the tensor fascia rolando muscle. This fascia was then incised in line with the muscle fibers. Care was taken to stay laterally in order to avoid injuring the lateral femoral cutaneous nerve. Next, using blunt finger dissection, the tensor fascia rolando muscle was dissected off its investing fascia. The muscle was then carefully retracted laterally with a cobra retractor over the lateral neck of the femur. Next, the circumflex vessels were identified and cauterized using the Aquamantis device. The anterior hip capsule was then exposed. The capsule was then opened and an inverted T fashion. The retractors were then placed intracapsularly. The retractors were maintained intracapsular throughout the procedure. The proximal femur was then visualized. Fluoroscopic x-rays were then taken in or johanna to evaluate the preoperative leg lengths. A small amount of traction was placed on the leg. The femoral neck was then osteotomized at the appropriate level above the lesser trochanter. A small wedge of bone was then removed from the remaining femoral head. Next, using a corkscrew the femoral head was removed from the acetabulum. On gross visual inspection, the femoral head had complete loss of articular cartilage and multiple periarticular osteophytes. The femoral head was then measured. Attention was then turned to the acetabulum. The acetabulum was exposed and any remaining labrum was excised. Sequential reaming of the acetabulum was performed using fluoroscopic guidance until there was a good bed of bleeding cancellus bone. When the appropriate size was reached, a trial was then placed. The position and fit of the trial was checked with fluoroscopy. The trial was then removed. Then, using fluoroscopic guidance, the final implant was impacted at 20 of anteversion and 40 of abduction, and fully seated in the acetabulum. 2 screws were then placed in the acetabulum. Again fluoroscopy was used to check position of the screws. Next, the liner was then impacted, with a 20 elevated liner located in the anterior superior quadrant. Component locking was confirmed. Attention was then directed to the femur. With the aid of the [place] table, the femur was externally rotated to approximately 130, extended, and adducted under the opposite leg. A side hook was then placed under the proximal femur, and the side hook elevator was used to elevate the proximal femur while releasing the capsule. Retractors were then placed. A capsular release was performed, as well as a release of the conjoined tendon, which afforded excellent visualization of the proximal femur. Next, a box osteotome was used to lateralize the proximal femur. A wharf hand was then used to locate the femoral canal. Sequential broaching was then performed with appropriate size which afforded excellent fixation in the proximal femur. A trial was then placed with appropriate head and neck, and the hip was gently reduced with the aid of the [place] table. Fluoroscopy was then used to check position of the components, as well as to evaluate the leg lengths and offset. The leg lengths and offset were measured as closely as possible to ensure stability of the hip. The hip was then gently dislocated and the trials were then removed. Final implants were then impacted and the hip was again reduced. Final fluoroscopic x-rays confirmed that the components were in anatomic position. The leg lengths and offset were measured and were found to coincide with the trial measurements. The hip was also taken through range of motion, and found to be stable. The hip was then copiously irrigated with antibiotic solution with pulsatile lavage. The hip was then irrigated with Irrisept solution. The soft tissues were then injected with a ropivacaine solution. A second dose of 1 g of Tranexamic acid was also given intravenously. The fascia was then closed with 2-0 strata fix suture. The subcutaneous tissue was closed with 3-0 Vicryl. The subcuticular tissue was closed with 3-0 monocryl suture. The skin was then closed with Exofin skin glue. After the glue and dried, and Optifoam silver impregnated dressing was applied. The patient was then transferred to the recovery room in stable condition. The assistant child care teacher NEETA Peralta was required due to the complexity of surgery, and the need for skilled surgical supplies sterilizer for positioning, draping, exposure, retraction, and closure of the wound.
[2024-02-20] MEDS: LACTATED RINGERS 1,000 ML IV ONE (10:30)
--- NOTE | 2024-02-20 10:58 | XR ---
Fluoroscopy INDICATION: Pain FINDINGS: Fluoroscopy time: 53.2 seconds. Total dose area product (DAP) in uGy*m?, mGy*cm? (or similar): 2.9628 Images obtained: 4. Right hip prosthesis placed IMPRESSION: 1. Documentation of fluoroscopy. [facility], , 02/20/2024 10:55 AM
[2024-02-20] MEDS: HYDROmorphone 0.5 MG/0.5 ML SYRINGE IVP PRN (11:18)
--- NOTE | 2024-02-20 13:01 | XR ---
EXAMINATION TYPE: XR Hip Limited RT DATE OF EXAM: 02/20/2024 12:55 PM COMPARISON: 10/28/2013 CLINICAL INDICATION: Female, 58 years old with history of Status post hip surgery, assess surgical al ignment, TECHNIQUE: AP view(s) obtained. FINDINGS: Right femoral prosthesis has been placed. Acetabular component screws are present. Postsurgical soft tissue changes are evident. No acute fractures are evident IMPRESSION: 1. No acute fracture post right hip replacement [facility], , 02/20/2024 12:58 PM
--- NOTE | 2024-02-20 16:04 | FL ---
Fluoroscopy INDICATION: Pain FINDINGS: Fluoroscopy time: 49 seconds. Total dose area product (DAP) in uGy*m?, mGy*cm? (or similar): 2.9628 Images obtained: 0. IMPRESSION: 1. Documentation of fluoroscopy. [facility], , 02/20/2024 4:02 PM
[2024-02-20] MEDS: SCOPOLAMINE 1 MG/72 HR PATCH TRANSDERM ONE (17:10)
[2024-02-20] MEDS: SODIUM CHLORIDE 0.9% 1,000 ML IV SCH (17:10)
[2024-02-20] MEDS: SENNOSIDES-DOCUSATE SODIUM 1 EACH TAB PO SCH (21:14)
[2024-02-20] MEDS: ASPIRIN 81 MG PO SCH (21:14)
[2024-02-21 03:34] VITALS: RESP 16
[2024-02-21] MEDS: HYDROcodone/APAP 7.5-325MG 1 EACH TAB PO PRN (04:09)
--- NOTE | 2024-02-21 07:40 | P.DS ---
Providers Expected date of discharge: 02/21/24 Attending physician: Fan Argueta Consults: 02/20/24 08:49 Consult Physician Routine Consulting Provider: Griselda Balderas Consult Reason/Comments: medical management Do you want consulting provider notified?: Yes Primary care physician: Iron Garrido - Discharge Diagnosis(es) (1) S/P total hip arthroplasty Current Visit: No Status: Acute Hospital Course: This is a 58-year-old female with known history of degenerative arthritis of the right hip. The patient presents for evaluation. After discussion and consideration patient elects to proceed with total hip arthroplasty with direct anterior approach. The patient is seen preoperatively by primary care physician and cleared for surgery. Patient is admitted to [facility] on 02/20/2024 for total hip arthroplasty with direct anterior approach. The procedure is performed without complication or sequelae. The patient is doing well postoperatively. Labs and vital signs are stable on day of discharge. On day of discharge patient's hip incision is healing well. There is minimal erythema. There is no drainage noted at this time. There is minimal soft tissue swelling to the hip and thigh. Patient has full foot and ankle motion without difficulty or pain. Neurovascular status to the lower extremity is intact. Patient is discharged to home in good condition. Please see med rec for accurate list of home medications. Patient Condition at Discharge: Good Plan - Discharge Summary Discharge Rx Participant: Yes New Discharge Prescriptions: New Aspirin [Adult Low Dose Aspirin EC] 81 mg PO BID 30 Days #60 tab Sennosides [Senokot] 2 tab PO DAILY PRN #60 tablet PRN Reason: Constipation HYDROcodone/APAP 7.5-325MG [[place] 7.5-325] 1 - 2 tab PO Q6H PRN #32 tab PRN Reason: Pain No Action Omeprazole [PriLOSEC] 40 mg PO AC-LUNCH Acetaminophen Tab [Tylenol] 500 - 1,000 mg PO Q4-6H PRN PRN Reason: Pain Ezetimibe [Zetia] 10 mg PO QAM Aspirin [Adult Low Dose Aspirin EC] 81 mg PO DAILY Lisinopril-Hctz 20-25 mg [Zestoretic 20-25] 1.5 tab PO DAILY Metoprolol Succinate (ER) [Toprol XL] 12.5 mg PO QAM Rosuvastatin [Crestor] 40 mg PO QAM Clopidogrel [Plavix] 75 mg PO DAILY #30 tab Ibuprofen [Motrin] 800 mg PO DAILY PRN PRN Reason: Pain Levocetirizine Dihydrochloride [Xyzal] 5 mg PO HS Discharge Medication List Metoprolol Succinate (ER) [Toprol XL] 12.5 mg PO QAM 10/26/20 [History] Rosuvastatin [Crestor] 40 mg PO QAM 06/04/23 [History] Acetaminophen Tab [Tylenol] 500 - 1,000 mg PO Q4-6H PRN 06/06/23 [History] Omeprazole [PriLOSEC] 40 mg PO AC-LUNCH 06/06/23 [History] Aspirin [Adult Low Dose Aspirin EC] 81 mg PO DAILY 08/14/23 [History] Ezetimibe [Zetia] 10 mg PO QAM 08/14/23 [History] Clopidogrel [Plavix] 75 mg PO DAILY #30 tab 08/17/23 [Rx] Ibuprofen [Motrin] 800 mg PO DAILY PRN 10/04/23 [History] Levocetirizine Dihydrochloride [Xyzal] 5 mg PO HS 01/03/24 [History] Lisinopril-Hctz 20-25 mg [Zestoretic 20-25] 1.5 tab PO DAILY 01/03/24 [History] Aspirin [Adult Low Dose Aspirin EC] 81 mg PO BID 30 Days #60 tab 02/20/24 [Rx] HYDROcodone/APAP 7.5-325MG [[place] 7.5-325] 1 - 2 tab PO Q6H PRN #32 tab 02/20/24 [Rx] Sennosides [Senokot] 2 tab PO DAILY PRN #60 tablet 02/20/24 [Rx] Follow up Appointment(s)/Referral(s): Fan Argueta DO [Doctor of Osteopathic Medicine] - 2 Weeks Activity/Diet/Wound Care/Special Instructions: Weightbearing as tolerated with walker. Leave dressing intact. Dressing may be removed by home care nurse or by patient in 7 days. Then change dressing twice daily until follow up. May shower with initial dressing intact and after removal. If dressing become saturated, please remove. Please resume Plavix and take aspirin 81mg twice daily for 30 days to prevent blood clots. Recommend use of compression stockings daily until follow up to help prevent swelling and blood clots. May remove at night before sleeping. Please follow[facility]up with [facility] in 2 weeks and call with any questions or concerns, . Discharge Disposition: HOME WITH HOME HEALTH SERVICES
[2024-02-21 07:56] VITALS: BP 121/64; PULSE 76; TEMP 98.6
[2024-02-21 08:32] LABS: Basophils # (A) 0.01 X 10*3/uL (0.00-0.10); Basophils % (A) 0.1 %; Eosinophils # (A) 0.01 X 10*3/uL (0.04-0.35); Eosinophils % (A) 0.1 %; HCT 32.8 % (37.2-46.3); HGB 10.7 g/dL (12.0-15.0); Lymphocytes # (A) 1.94 X 10*3/uL (0.90-5.00); Lymphocytes % (A) 19.8 %; MCH 30.9 pg (27.0-32.0); MCHC 32.6 g/dL (32.0-37.0); MCV 94.8 FL (80.0-97.0); Mean Platelet Volume 9.9 FL (9.5-12.2); Monocytes # (A) 0.88 X 10*3/uL (0.20-1.00); NRBC Per 100 WBC 0 X 10*3/uL (0.00-0.01); Neutrophils % (A) 70.6 %; Platelet Count 272 X 10*3/uL (140-440); RBC 3.46 X 10*6/uL (4.10-5.20); WBC 9.78 X 10*3/uL (4.50-10.00)
[2024-02-21] MEDS: CLOPIDOGREL 75 MG TAB PO SCH (08:43)
--- NOTE | 2024-02-21 15:54 | CONS ---
CONSULTATION REASON FOR CONSULTATION: Advice regarding hypertension, hyperlipidemia, requested by [facility]. HISTORY OF PRESENT ILLNESS: This is a 58-year-old woman with a past medical history of hypertension, hyperlipidemia, multiple medical problems, underwent right total hip joint arthroplasty for severe DJD. There is no history of any fever, rigors, or chills at this time. PAST MEDICAL HISTORY: Reviewed include hypertension, hyperlipidemia. Rest of the history and rest of the chart is also reviewed. HOME MEDICATIONS: Reviewed include Prilosec. Dose and rest of medications reviewed. ALLERGIES: None. FAMILY HISTORY: History of lung cancer. SOCIAL HISTORY: Occasional alcohol. REVIEW OF SYSTEMS: Fourteen-point review is negative except as mentioned earlier. PHYSICAL EXAMINATION: VITAL SIGNS: Pulse is 76, blood pressure 120/61, respirations 16. CHEST: Clear to auscultation. CARDIOVASCULAR: S1, S2. ABDOMEN: Soft. LEGS: Status post surgery. LABORATORY DATA: Hemoglobin 10.7. ASSESSMENT: 1. Status post right total hip joint arthroplasty. 2. Hypertension. 3. Hyperlipidemia. 4. Degenerative joint disease. 5. History of sleep apnea. RECOMMENDATIONS AND DISCUSSION: This is a 58-year-old woman, who presented with multiple complex medical issues, we will monitor the patient closely. Continue the current medications, continue symptomatic treatment. Resume the home medications. DVT prophylaxis per [facility]. Recommend close followup with primary physician in the outpatient setting. MMODL / IJN: [id number] /
== END 2024-02-21 11:43 | disposition home health service (06) ==
LOC: OR 06:49 → 4SSUR 10:31 → OR 02-21 11:43
PROVIDERS: ATTEND Orthopaedic Surgery
DX: M16.11 Unilateral primary osteoarthritis, right hip (principal); G89.18 Other acute postprocedural pain; I10 Essential (primary) hypertension; I47.19 Other supraventricular tachycardia; E78.49 Other hyperlipidemia; G47.33 Obstructive sleep apnea (adult) (pediatric); R00.2 Palpitations; R00.1 Bradycardia, unspecified; K21.9 Gastro-esophageal reflux disease without esophagitis; Z79.02 Long term (current) use of antithrombotics/antiplatelets; Z79.82 Long term (current) use of aspirin; Z79.899 Other long term (current) drug therapy; Z87.891 Personal history of nicotine dependence; Z86.73 Personal history of transient ischemic attack (TIA), and cerebral infarction without residual deficits; Z96.642 Presence of left artificial hip joint
CPT/HCPCS: 27130; 97161; 97166; 64999; 85025; 73501; C1776; J2250; J0330; J1100; J2710; J0690 ×2; J2405; J2003; J3010; J1171 ×2; J2795; J2704; J2371; J1596

== ENCOUNTER → 2024-10-07 | Outpatient (CLI) | payer MEDICARE ==
--- NOTE | 2024-10-07 18:34 | MM ---
Reason for Exam: Screening (asymptomatic). Last screening mammogram was performed 12 month(s) ago. Patient History: Menarche at age 12. First Full-Term at age 17. Postmenopausal. Hormonal Contraceptives for 3 years from age 17 until age 20. Risk Values: Rosetta 5 year model risk: 1.0%. NCI Lifetime model risk: 5.3%. Prior Study Comparison: 06/21/2021 Bilateral Screening Mammogram, [facility]. 09/08/2022 Bilateral MG 3D screening mammo w/cad, [facility]. 09/12/2023 Bilateral MG 3D screening mammo w/cad, [facility]. Tissue Density: There are scattered areas of fibroglandular density. Findings: Analyzed By CAD. There is no suspicious group of microcalcifications or new suspicious mass in either breast. Overall Assessment: Negative, BI-RAD 1 Management: Screening Mammogram of both breasts in 1 year. Patient should continue monthly self-breast exams. A clinical breast exam by your physician is recommended on an annual basis. This exam should not preclude additional follow-up of suspicious palpable abnormalities. Note on Rosetta scores and lifetime risk: 1. A Rosetta score greater than 3% is considered moderate risk. If this is the case, consider specialist referral to assess eligibility for a risk reducing agent. 2. If overall lifetime risk for the development of breast cancer is 20% or higher, the patient may qualify for future screening with alternating mammogram and breast MRI. [facility], , 10/07/2024 5:37 PM. Electronically signed and approved by: Sara Bonilla M.D. Radiologist
--- NOTE | 2024-10-07 21:03 | BD ---
EXAMINATION TYPE: Axial Bone Density DATE OF EXAM: 10/07/2024 CLINICAL HISTORY: 59 years old Female. ICD-10 CODE: Z78.0 POST [place] STATE , Additional History: Height: 60.2 in Weight: 182 lbs HISTORY OF: History of Wrist Fracture: lt wrist fx age 36 Surgery to Hip(right/left)/Wrist (left): hip surgery lt 2013; rt 2023; wrist surgery 2001 EXAM MEASUREMENTS: Bone mineral densitometry was performed using the [email or web address] System. Bone mineral density as measured about the Lumbar spine is: ----- L1-L4(G/cm2): 1.685 T Score Values are as follows: ----- L1: 3.7 ----- L2: 5.5 ----- L3: 4.8 ----- L4: 3.1 ----- L1-L4: 4.2 Z Score Values are as follows: ----- L1: 4.3 ----- L2: 6.1 ----- L3: 5.4 ----- L4: 3.7 ----- L1-L4: 4.8 Bone mineral density has: Decreased -2.9 since study of 09/08/2022 IMPRESSION: Normal (Values between +1 and -1 indicate normal bone mass). Consider repeating this study in 5 year s or sooner if there is some new clinical indication. NOTE: T-SCORE=SD OF THE YOUNG ADULT MEAN. [facility], Workstation: [id number], 10/07/2024 9:00 PM
== END | disposition home or self-care (01) ==
LOC: RADMAMWWP 15:48
PROVIDERS: ATTEND Family Medicine
DX: Z12.31 Encounter for screening mammogram for malignant neoplasm of breast (principal); R92.323 Mammographic fibroglandular density, bilateral breasts; Z92.0 Personal history of contraception; Z78.0 Asymptomatic menopausal state
CPT/HCPCS: 77063; 77067; 77080